=== PATIENT | male | born 1940 | race Caucasian/White ===

== ENCOUNTER → 2018-02-12 | Day surgery (SDC) | payer MEDICARE ==
[2018-02-04 15:11] LABS: BASOPHILS # (AUTO) 0.1 (0.0-0.1); BASOPHILS % 0.6 % (0.0-1.0); EOSINOPHILS # (AUTO) 0.2 (0.0-0.4); EOSINOPHILS % 1.9 % (0.0-6.0); HEMATOCRIT 33.6 % (38.2-49.6); HEMOGLOBIN 11.8 g/dL (14.0-18.0); LYMPHOCYTES # (AUTO) 2.5 (1.0-3.2); LYMPHOCYTES % 32.4 % (18.0-39.1); MEAN CORPUSCULAR HEMOGLOBIN 35.3 pg (28-32); MEAN CORPUSCULAR HGB CONC 35.1 g/dL (31-35); MEAN CORPUSCULAR VOLUME 100.6 fL (81-99); MONOCYTES # (AUTO) 1.2 (0.2-0.8); MONOCYTES % 15.6 % (4.4-11.3); NEUTROPHILS # (AUTO) 3.8 (2.1-6.9); NEUTROPHILS % 49.2 % (38.7-80.0); PLATELET COUNT 183 x10e3/uL (140-360); RED BLOOD COUNT 3.34 x10e6/uL (4.3-5.7); RED CELL DISTRIBUTION WIDTH 14.2 % (11.7-14.4)
[~2018-02-12] MED LIST: ASPIR 8181 MG PO; FENTANYL CITRATE/PF 100MCG/2 ML INJ ONE; LIDOCAINE HCL 2% LOCAL INJ 5 ML SDV VIAL INJ ONE; LISINOPRIL20 MG PO; PANTOPRAZOLE SO40 MG PO; PROPOFOL IV EMULSION 10 MG/ML 50 ML VIAL ONE
== END | disposition home or self-care (01) ==
LOC: OR 06:36
PROVIDERS: ATTEND Internal Medicine Gastroenterology
DX: K29.80 Duodenitis without bleeding (principal); K29.50 Unspecified chronic gastritis without bleeding; K44.9 Diaphragmatic hernia without obstruction or gangrene; I10 Essential (primary) hypertension; Z88.0 Allergy status to penicillin; Z01.812 Encounter for preprocedural laboratory examination; Z01.810 Encounter for preprocedural cardiovascular examination; Z79.82 Long term (current) use of aspirin; Z80.0 Family history of malignant neoplasm of digestive organs
CPT/HCPCS: 36415; 43239; 85025; 93005; J2001

== ENCOUNTER 2018-07-01 11:30 | Inpatient (IN) | payer MEDICARE ==
[~2018-07-01] VITALS: Ht 177.8 cm; Wt 90.9 kg
[~2018-07-01 11:30] MED LIST changes: -FENTANYL CITRATE/PF 100MCG/2 ML INJ ONE; -LIDOCAINE HCL 2% LOCAL INJ 5 ML SDV VIAL INJ ONE; -PROPOFOL IV EMULSION 10 MG/ML 50 ML VIAL ONE
[2018-07-01 12:31] LABS: BASOPHILS % 0.3 % (0.0-1.0); EOSINOPHILS % 0.1 % (0.0-6.0); HEMATOCRIT 37.7 % (38.2-49.6); HEMOGLOBIN 12.4 g/dL (14.0-18.0); LYMPHOCYTES # (AUTO) 1.4 (1.0-3.2); LYMPHOCYTES % 20.3 % (18.0-39.1); MEAN CORPUSCULAR HEMOGLOBIN 34.5 pg (28-32); MEAN CORPUSCULAR HGB CONC 32.9 g/dL (31-35); MONOCYTES # (AUTO) 0.6 (0.2-0.8); MONOCYTES % 8.9 % (4.4-11.3); PLATELET COUNT 259 x10e3/uL (140-360); RED BLOOD COUNT 3.59 x10e6/uL (4.3-5.7); RED CELL DISTRIBUTION WIDTH 15.6 % (11.7-14.4)
[2018-07-01 12:40] LABS: INR 1.02; PROTHROMBIN TIME 14.3 seconds (11.9-14.5)
[2018-07-01 12:41] LABS: PARTIAL THROMBOPLASTIN TIME 28.9 seconds (23.8-35.5)
[2018-07-01 12:53] LABS: ALANINE AMINOTRANSFERASE 173 IU/L (0-55); ALBUMIN 3.8 g/dL (3.5-5.0); ALBUMIN/GLOBULIN RATIO 0.9 (0.8-2.0); ALKALINE PHOSPHATASE 76 IU/L (40-150); AMYLASE 80 U/L (25-125); ANION GAP 15.3 mmol/L (8-16); BLOOD UREA NITROGEN 30 mg/dL (7-26); BUN/CREATININE RATIO 29 (6-25); CARBON DIOXIDE 22 mmol/L (22-29); CHLORIDE 103 mmol/L (98-107); CREATINE KINASE 96 IU/L (30-200); CREATININE, SERUM 1.05 mg/dL (0.72-1.25); EST GLOMERULAR FILTRATION RATE > 60 ML/MIN (60-); GLUCOSE 151 mg/dL (74-118); LIPASE 22 U/L (8-78); POTASSIUM 4.3 mmol/L (3.5-5.1); SODIUM 136 mmol/L (136-145)
--- NOTE | 2018-07-01 14:33 | Diagnostic Imaging Report ---
EXAM: XR CHEST 1 VIEW DATE: 07/01/2018 12:14 PM INDICATION: Pain/shortness of breath COMPARISON: None FINDINGS: Lines and Tubes: None Heart and Mediastinum: Heart prominent. Prominence of the pebbles poorly evaluated. Aortic vascular calcifications. Lungs and Pleura: Coarse opacities in the lung bases with blunting of the costophrenic sulci. Bones and Soft Tissues: Calcific density inferior to right scapula 21 mm. IMPRESSION: 1. Prominence of cardiac silhouette and pebbles, basilar opacities, and blunted costophrenic sulci statistically volume overload; however, no comparisons available. Correlation with history. 2. Superimposed chronic lung changes or infectious process possible. 2 view chest x-ray follow-up recommended for weeks. 3. Presumed calcified lymph node right axilla. Correlation with physical exam. Ultrasound could be obtained for further evaluation if indicated. Signed by: Dr. Benedict Mena MD on 07/01/2018 2:29 PM
[2018-07-01] MEDS ORDERED: ENOXAPARIN SODIUM INJ 100 MG/ML SYR SC ONE (16:15)
[2018-07-01] MEDS ORDERED: FUROSEMIDE INJ 10 MG/ML 4 ML VIAL IV ONE ×3 (17:30→22:00)
--- NOTE | 2018-07-01 17:38 | History and Physical ---
PAST MEDICAL HISTORY: The patient has multiple medical problems ongoing. He is being hospitalized through the emergency room per ER MD recommendation. The patient presented with shortness of breath. He had called the office earlier today and I was not told. He stated he did not feel right and was going to the hospital. Problems have included intermittent anemia. The hemoglobin was 13.3 on September 04 this year with normal folate and B12 levels. The hemoglobin was 10.8 on June 26 with normal white count and normal platelet count. MCH trace elevated at 34.2. MCV normal. MCHC normal. 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 The patient noted some arm discomfort when seen last June 25 at which time CPK and a comprehensive metabolic profile were ordered and there are no reports of those studies available. Primary hypertension on lisinopril 20 mg daily. Peripheral vascular disease. COPD. Smokes 2 to 5 cigarettes daily. September 2017 EGD revealed Sariah esophagitis and gastroduodenitis, which were treated. Diverticulosis, by history. Chronic right carotid bruit. April 19, 2018 Doppler scan of carotids, right side and left side with less than 50% stenosis. Possible vertebral artery stenosis "upstream ". The patient has chronic systolic murmur. History includes neuropathy symptoms. Followup B12 and folic acid levels were ordered on June 25 and those reports are not available. History includes Dupuytren's. Prior urinary tract infections. The patient had previously been referred to a urologist and he declined to go there. Chest x-ray was ordered on June 25 and the patient declined to do that. O2 sat 94% on June 25, 2018. Electrocardiogram at that time revealed nonspecific ST changes, inferior Q and LVH. The urinalysis is clear on June 26. ALLERGIES: Patient is allergic to PENICILLIN. He was given a flu shot at the [facility] on April 25, 2018. PAST SURGICAL HISTORY: Colonoscopy February 01, 2016. EGD on September 23, 2017. Repeat colonoscopy was recommended for 2018. The patient was referred to a lens cutter last year and he declined referral. See also current ER note. Dictation of current History and Physical to follow separately. Job#: [id number]
--- NOTE | 2018-07-01 17:52 | NUR ---
DR. Radha RESENDEZ IN WITH PT. AT THIS TIME.
[2018-07-01] MEDS ORDERED: TUBERCULIN, PPD INJ 5 TU/0.1 ML INJ ID ONE (18:00)
[2018-07-01] MEDS ORDERED: ASPIRIN 81 MG CHEW TAB PO ONE (18:00)
[2018-07-01] MEDS ORDERED: NITROGLYCERIN 2% OINT 1 GM PKT TOP ONE (18:00)
--- NOTE | 2018-07-01 19:01 | History and Physical ---
Dictation of past medical history again entered earlier separately. The patient was hospitalized through the emergency room. He notes 1 week of dyspnea on exertion. Occasional purulent sputum. He denies headache or difficulty with vision. No meningismus. Patient states he has continued to smoke until yesterday 1/2 pack daily. No chest pain. Denies nausea or diaphoresis. Dyspnea on exertion and not at rest. He notes vague discomfort in his upper extremities. Denies diarrhea or GI bleed. Denies current urological symptoms of dysuria or hematuria. Neuromuscular per patient otherwise negative. FAMILY HISTORY: Family history positive for coronary disease. ALLERGIES: See chart, nurses' notes. See also dictation of past medical history dictated earlier separately. ER lab reviewed. Glucose 151. AST 87, ALT 173. Troponin I is 0.61. B-natriuretic peptide 1330. Globulin 4.1 elevated. White count normal at 7.08. Hemoglobin 12.4. Indices MCV, MCH elevated. Pro time, PTT normal. Chest x-ray: See report. Prominence of cardiac silhouette and pebbles. Basilar opacities and blunted sulci, chronic lung changes or "infectious process possible." Presumed calcified lymph node right axilla. PHYSICAL EXAMINATION VITAL SIGNS: Temperature 96.3. Pulse 93 and regular. Respiratory rate 20, not labored. Blood pressure 135/86. O2 sat 94%. HEENT: No significant pallor or icterus. Throat clear. NECK: Supple. Carotids palpable. Faint bruits. HEART: Systolic ejection murmur 1-2/6, especially aortic area, generalized faint wheeze. ABDOMEN: Soft. Bowel sounds normal. EXTREMITIES: With bilateral 1+ edema. Peripheral pulses dampened. Homans' negative. Calves not tender. IMPRESSION: 1. Dyspnea on exertion. Recent EKG changes. Elevated troponins. Natriuretic peptide elevated. Fluid overload on chest x-ray. Appreciate cardiology and plans. See notes when available. Assess with an echo and angiography when able. 2. Hyperlipoproteinemia. 3. History of atherosclerosis with history of nonobstructive carotid disease in the past. 4. Systolic ejection murmur. LVH on recent EKG changed. The patient was referred to his polygraph examiner previously. 5. GI history of Sariah esophagitis and colon polyps. See recent endoscopy here per computer reviewed. 6. Hypertension. 7. History of gastroesophageal inflammation. 8. Elevated blood glucose to check A1c and follow up. 9. Chronic anemia. Previously the patient declined recommended hematology evaluation. Endoscopy essentially benign with some findings as mentioned above with recent reports per electronic medical record here. Vague lower abdominal discomfort now. PLAN: To check UA and image abdomen. His transaminases are elevated now. Check hepatitis viral studies. Follow up enzymes. PPD. Vitamin levels. Protein electrophoresis. Diurese as tolerated. Check troponin, follow up and check D-dimer. See initial and followup orders. Case discussed with ER physician. Job#: [id number]
--- NOTE | 2018-07-01 19:15 | NUR ---
PT. WAS SITTING IN THE HALLWAY COMING FROM THE AND HAD TO SIT TO CATCH HIS BREATH. Mark. CALLED
--- NOTE | 2018-07-01 19:22 | NUR ---
R.T. TO PLACE PT. ON BIPAP
--- NOTE | 2018-07-01 19:25 | NUR ---
R.T. IN ROOM AT THIS TIME TO PLACE PT. ON BIPAP
--- NOTE | 2018-07-01 19:37 | Diagnostic Imaging Report ---
EXAM: Renal Ultrasound INDICATION: ^Dysuria COMPARISON: None TECHNIQUE: Transverse and longitudinal images of the kidneys and bladder were obtained. FINDINGS: Right Kidney: Size: 10.1 cm Echogenicity: Normal Parenchymal thickness: Normal Collecting system: No hydronephrosis Stones: None Cyst/Mass: None Left Kidney: Size: 11.4 cm Echogenicity: Normal Parenchymal thickness: Normal Collecting system: No hydronephrosis Stones: None Cyst/Mass: None Bladder: Unremarkable. Prostate is within normal limits, measuring 3.1 x 1.9 x 2.6 cm. Incidentally seen trace left pleural effusion. IMPRESSION: Unremarkable renal ultrasound exam. Signed by: Dr. Fransisco Rodríguez MD on 07/01/2018 7:34 PM
--- NOTE | 2018-07-01 19:50 | Consultation ---
DATE OF CONSULTATION: July 01, 2018 CARDIOLOGY CONSULTATION REASON FOR CONSULTATION: Shortness of breath. HISTORY OF PRESENT ILLNESS: Mr. Toscano is a 77-year-old gentleman with past medical history of heavy smoking, COPD as well as hypertension, who presents to this institution with 3-week history of progressively worsening lower extremity edema, increased abdominal girth, dyspnea to the point at rest, and cannot complete 1 or 2 words without having to catch his breath. He has progressively worsened over this time period and has been having episodic discomfort radiating across his shoulders as well as tightness in the back of his neck region. He reports difficulty putting on his pants and reports that he has got no appetite with early satiety, which is relatively new onset for him. Patient reports upright of orthopnea, PND, but denies any subjective palpitations, syncope, or near syncope. In the emergency room, patient was noted to be in acute pulmonary edema with severe volume overload and overall elevated BNP at 1330 with vascular congestion and a troponin of 0.618 with a normal CK-MB at 3.9 and CK of 96. Patient denies having any known cardiac history in the past. Outside of his hypertension, he denies any known medical problems. PAST MEDICAL HISTORY: 1. Hypertension, essential. 2. COPD. PAST SURGICAL HISTORY: History of polypectomy 1 year ago during his colonoscopy. FAMILY HISTORY: Mother in her 90s, had a brain tumor resection. Father at the age of 64 with a heart attack. SOCIAL HISTORY: He is a former smoker. He says he quit just recently, but off and on 1 pack per day. Has off and on alcohol use. Denies any illicit drug use. ALLERGIES: PENICILLIN, WHICH CAUSED THE RASH AND ITCHINESS. CURRENT MEDICATIONS: Include lisinopril 20 mg daily. REVIEW OF SYSTEMS: GENERAL: Positive for fatigue, malaise, weight gain. Denies any fevers or chills. HEENT: Occasional headache. No visual complaints, sore throat, stuffy nose. Positive for neck pain as per HPI. CARDIOVASCULAR: As per HPI. GI: Positive for abdominal bloating, early satiety. Denies any bright red blood per rectum, melena, hematemesis. : Denies any pyuria. Reports decreased urinary frequency, hesitancy, urgency, and increased suprapubic girth. MUSCULOSKELETAL: Positive for leg swelling, aching and cramping in his legs, and some claudication-type symptoms. BACK: Positive for lower back pain. ID: No known infectious issues. ENDOCRINE: Denies any heat or cold intolerance. NEUROLOGIC: Denies any focal weakness, numbness, seizures, headaches, history of TIA. Positive for tingling in his feet bilaterally. Remainder of review of systems negative otherwise mentioned. PHYSICAL EXAMINATION: VITAL SIGNS: Height of 70 inches, weight of 182 pounds. BMI is 26.1. Temperature of 96.3, pulse of 93, respiratory rate of 20, blood pressure 135/86, O2 sat 94% on room air. GENERAL: This is a well-nourished, well-developed gentleman, who is currently in moderate respiratory distress. HEENT: Pupils are equal, round, and reactive to light. Extraocular movements are intact. Oropharynx is clear. NECK: Positive for bilateral carotid bruits. Elevation of jugular venous pulsations at angle of mandible. CARDIOVASCULAR: Regular rate and rhythm. Normal S1 and S2. 3/6 systolic murmur at the right upper sternal border. LUNGS: Showed absent breath sounds one-third of the lung pepe bilaterally with crackles one-half of the lung pepe and poor air flow. ABDOMEN: Firm, tense, distended. Positive fluid wave. Positive hepatomegaly. There is also suprapubic fullness. BACK: No costovertebral angle tenderness. EXTREMITIES: Warm with 3+ edema to the lower thigh region. There are absent pedal pulses, 1+ femoral pulses and 1+ radial pulses. NEUROLOGIC: Cranial nerves II-XII are intact. Strength is 5/5 and grossly nonfocal. PSYCH: Normal fluent speech. Appropriate affect. No anxiety or delusions. LABS: White count of 7.1, hemoglobin 12.4, hematocrit 37.7, platelets of 259,000. Sodium 136, potassium 4.3, chloride of 103, bicarb 22, BUN 30, creatinine 1.05, glucose of 151, calcium of 10.0. AST 87, ALT 173, alk phos 76, total protein of 7.9, albumin of 3.8, amylase 80, lipase 22. BNP 1330. Troponin is 0.618, within normal. CK of 96 and MB of 3.9. INR is 1.02. Chest x-ray reveals vascular congestion and volume overload signs. EKG reveals sinus rhythm, intraventricular conduction delay, and delayed R to S wave transition and T-wave inversions in the inferolateral leads, which could be ischemia. DIAGNOSES: 1. Acute decompensated systolic heart failure with radha gross volume overload. 2. Elevated troponin, likely demand myocardial infarct secondary to congestive heart failure exacerbation. 3. Bilateral carotid bruits. 4. High pretest probability of coronary artery disease. 5. Smoker. 6. Hypertension. 7. Chronic obstructive pulmonary disease. 8. Positive family history of coronary artery disease with father dying of heart attack at the age of 64. 9. Abnormal electrocardiogram. 10. Benign prostatic hypertrophy symptoms. 11. Bilateral lower extremity edema. PLAN/RECOMMENDATIONS: 1. From a cardiovascular standpoint, we have started him on IV diuretic therapy and will need aggressive diuresis and volume optimization. 2. Will go ahead and check his echocardiogram STAT for evaluation of left ventricular function. 3. Has received 1 dose of subcutaneous Lovenox for systemic anticoagulant therapy. 4. Check abdominal ultrasound to see if any signs of urinary retention, which may be complicating his clinical picture. 5. Will check carotid duplex. 6. Will titrate GIAN, beta-carlitos, etc. 7. Telemetry monitoring. 8. Will continue to follow this patient with you, but for right now goal will be improving his overall volume status prior to consideration of ischemic evaluation unless if radha angina starts to ensue. Job#: [id number]
--- NOTE | 2018-07-01 19:53 | NUR ---
VASC. TECH IN ROOM AT THIS TIME
--- NOTE | 2018-07-01 21:07 | NUR ---
VASC. EXam COMPLETE; reported to elle guerrero
[2018-07-01] MEDS: ALBUTEROL/IPRATROPIUM 3 ML NEB NEB SCH (21:30)
[2018-07-01 22:13] LABS: CHOL/HDL RATIO 3.7 (3.9-4.7)
[2018-07-01 22:19] LABS: CREATINE KINASE MB 10.7 ng/mL (0-5.0)
--- NOTE | 2018-07-01 22:32 | NUR ---
urine collected and sent off to the lab.
--- NOTE | 2018-07-01 22:36 | NUR ---
johnny from the lab called to report troponin -1.280/ck-mb-10.7
--- NOTE | 2018-07-01 22:44 | NUR ---
called dr. carlos alberto argueta at this time to inform him of the +troponin of 1.280/ ck-mb--10.7; no new orders rec'd
[2018-07-01] MEDS ORDERED: ONDANSETRON HCL INJ 2 MG/ML VIAL IV PRN (23:00)
[2018-07-01] MEDS ORDERED: SODIUM CHLORIDE FLUSH 10 ML SYR INJ PRN (23:00)
[2018-07-01 23:23] LABS: FOLATE 18.6 ng/mL (7.0-15.4)
[2018-07-01 23:36] LABS: BILIRUBIN,URINE NEGATIVE (NEGATIVE); CLARITY,URINE CLEAR (CLEAR); COLOR,URINE YELLOW (YELLOW); KETONES,URINE NEGATIVE (NEGATIVE); LEUKOCYTE ESTERASE ,URINE NEGATIVE (NEGATIVE); NITRITE,URINE NEGATIVE (NEGATIVE); PROTEIN,URINE DIPSTICK NEGATIVE (NEGATIVE); URINE UROBILINOGEN 0.2 mg/dL (0.2 - 1)
--- NOTE | 2018-07-01 23:41 | NUR ---
clarification obtained from dr. hurtado re ct abdomen. 2 tiger tops obtained.
[2018-07-01 23:46] LABS: RBC,URINE 0-5 /HPF (0-5); WBC,URINE (MAN) 0-5 /HPF (0-5)
[2018-07-01 23:47] LABS: BACTERIA,URINE RARE /HPF; EPITHELIAL CELLS,URINE RARE /LPF
--- NOTE | 2018-07-01 23:50 | NUR ---
REPEAT EKG AND REPORTED OFF TO [facility] FOR CONTINUITY OF CARE
[2018-07-02] VITALS (10 sets, daily range): BP systolic 98–136; BP diastolic 45–106
--- NOTE | 2018-07-02 00:08 | NUR ---
off unit to radiology w/ bipap. r.t. wAS called to take bipap over to radiolgy
--- NOTE | 2018-07-02 00:57 | Diagnostic Imaging Report ---
EXAM: CT of the abdomen and pelvis with IV contrast, CT chest without IV contrast INDICATION: Shortness of breath for 2 weeks, anemia COMPARISON: None TECHNIQUE: The chest, abdomen and pelvis were scanned using a multidetector helical scanner. Coronal and sagittal reformations were obtained. Dose modulation, iterative reconstruction, and/or weight based adjustment of the mA/kV was utilized to reduce the radiation dose to as low as reasonably achievable. Routine protocol performed of the abdomen and pelvis with IV contrast, followed by CT of the chest. IV Contrast: 100 cc Isovue-370 Oral Contrast: None CTDIvol has been reviewed. It is below the limits set by the Radiation Protocol Committee (RPC). FINDINGS: LUNGS AND AIRWAYS: Thin septations/debris in the trachea and right mainstem bronchus. Bilateral bronchial thickening. Emphysematous changes. Septal thickening. Spiculated nodule with pleural attachment in the right upper lung measuring 1.3 cm. Additional nonspecific subcentimeter nodules, examples as follows on series 3: * Right lower lobe, 4 mm, image 76 * Left upper lung, 4 mm, image 67 Bibasilar atelectasis PLEURA: Moderate layering bilateral pleural effusions. HEART, MEDIASTINUM, VESSELS: The heart is within normal size limits. Diffuse coronary artery calcifications. Calcifications of the aortic annulus and mitral valves. No abnormal pericardial effusion. Atherosclerotic changes of the thoracic aorta without aneurysm. Nonspecific mediastinal and right hilar lymph nodes measuring up to 1 cm. A subcarinal lymph node measures 1.5 cm in short diameter on coronal view. LIVER: No masses BILIARY: Cholelithiasis and gallbladder wall thickening. No ductal dilation. SPLEEN: No masses PANCREAS: No masses ADRENALS: Right adrenal gland nodule measuring 1.3 cm. Left adrenal gland nodule measuring 2 cm. KIDNEYS: Symmetric perfusion. No enhancing masses. No hydronephrosis. GI TRACT: No distention, wall thickening or evidence of obstruction. Normal appendix. VESSELS: Severe atherosclerotic changes of the abdominal aorta PERITONEUM/RETROPERITONEUM: No free air or fluid LYMPH NODES: No lymphadenopathy REPRODUCTIVE ORGANS: The prostate is enlarged to 5 cm in transverse diameter. BLADDER: Unremarkable SOFT TISSUES: Small fat-containing left inguinal hernia. BONES: No suspicious bone lesions. IMPRESSION: 1. Spiculated right upper lung 1.3 cm nodule is highly suspicious for primary lung cancer. Considerations per Fleischner Society recommendations include follow-up CT in 3 months, PET/CT or biopsy. 2. Emphysema and mild fluid overload. Moderate layering bilateral pleural effusions. 3. Cholelithiasis and nonspecific gallbladder wall thickening. There is no gallbladder distention. 4. Indeterminate right adrenal gland nodule measuring 1.3 cm and left adrenal gland nodule measuring 2 cm. Signed by: Dr. Clarita Brooke M.D. on 07/02/2018 12:54 AM
[2018-07-02] MEDS: ALBUTEROL/IPRATROPIUM 3 ML NEB NEB SCH ×4 (01:05→20:10)
[2018-07-02] MEDS ORDERED: SODIUM CHLORIDE 0.9% 50ML 50 ML ONE (02:27)
[2018-07-02] MEDS ORDERED: IOPAMIDOL 370 MG/ML 200 ML INFUS..BTL INJ ONE (02:27)
--- OUTSIDE RECORDS SUMMARY | 2018-07-02 02:39 | XMS REPORT ---
Author Author [facility] Address Unknown Phone Unavailable Care Team Providers Care Supervisor [employer] Name Role Phone Georgia GUERRERO Unavailable Unavailable Problems This patient has no known problems. Allergies, Adverse Reactions, Alerts This patient has no known allergies or adverse reactions. Medications This patient has no known medications. Results Test Description Test Time Test Comments Text Results Atomic Results Result Comments CT CHEST WO 2018-07-02 00:34:00 [place] [address] Patient Name: PHILIP CHU MR #: [id number] : 1940 Age/Sex: 77/M Req #: [id number] Adm Physician: Ordered by: SARAHI VANG MD Report #: [id number] Location: ER Room/Bed: Procedure: [id number] CT/CT CHEST WO Exam Date: Exam Time: REPORT STATUS: Signed EXAM: CT of the abdomen and pelvis with IV contrast, CT chest without IV con trast INDICATION: Shortness of breath for 2 weeks, anemia COMPARISON: None TECHNIQUE: The chest, abdomen and pelvis were scanned using a multidetector helical scanner. Coronal and sagittal reformations were obtained. Dose modulation, iterative reconstruction, and/or weight based adjustment of the mA/kV was utilized to reduce the radiation dose to as low as reasonably achievable. Routine protocol performed of the abdomen and pelvis with IV contrast, followed by CT of the chest. IV Contrast: 100 cc Isovue-370 Oral Contrast: None CTDIvol has been reviewed. It is below the limits set by the Radiation Protocol Committee (RPC). FINDINGS: LUNGS AND AIRWAYS: Thin septations/debris in the trachea and right mainstem bronchus. Bilateral bronchial thickening. Emphysematous changes. Septal thickening. Spiculated nodule with pleural attachment in the right upper lung measuring 1.3 cm. Additional nonspecific subcentimeter nodules, examples as follows on series 3: * Right lower lobe, 4 mm, image 76 * Left upper lung, 4 mm, image 67 Bibasilar atelectasis PLEURA: Moderate layering bilateral pleural effusions. HEART, MEDIASTINUM, VESSELS: The heart is within normal size limits. Diffuse coronary artery calcifications. Calcifications of the aortic annulus and mitral valves. No abnormal pericardial effusion. Atherosclerotic changes of the thoracic aorta without aneurysm. Nonspecific mediastinal and right hilar lymph nodes measuring up to 1 cm. A subcarinal lymph node measures 1.5 cm in short diameter on coronal view. LIVER: No masses BILIARY: Cholelithiasis and gallbladder wall thickening. No ductal dilation. SPLEEN: No masses PANCREAS: No masses ADRENALS: Right adrenal gland nodule measuring 1.3 cm. Left adrenal gland nodule measuring 2 cm. KIDNEYS: Symmetric perfusion. No enhancing masses. No hydronephrosis. GI TRACT: No distention, wall thickening or evidence of obstruction. Normal appendix. VESSELS: Severe atherosclerotic changes of the abdominal aorta PERITONEUM/RETROPERITONEUM: No free air or fluid LYMPH NODES: No lymphadenopathy REPRODUCTIVE ORGANS: The prostate is enlarged to 5 cm in transverse diameter. BLADDER: Unremarkable SOFT TISSUES: Small fat-containing left inguinal hernia. BONES: No suspicious bone lesions. IMPRESSION: 1. Spiculated right upper lung 1.3 cm nodule is highly suspicious for primary lung cancer. Considerations per Fleischner Society recommendations include follow-up CT in 3 months, PET/CT or biopsy. 2. Emphysema and mild fluid overload. Moderate layering bilateral pleural effusions. 3. Cholelithiasis and nonspecific gallbladder wall thickening. There is no gallbladder distention. 4. Indeterminate right adrenal gland nodule measuring 1.3 cm and left adrenal gland nodule measuring 2 cm. Signed by: Dr. Xiomara Brooke M.D. on 07/02/2018 12:54 AM Dictated By: XIOMARA BROOKE MD Transcribed By: PAM on 07/02/1853 COPY TO: SARAHI VANG MD CT ABDOMEN/PELVIS W 2018-07-02 00:34:00 [place] [id number] [place] [address] Patient Name: PHILIP CHU MR #: [id number] : 1940 Age/Sex: 77/M Req #: [id number] Adm Physician: Ordered by: KARLI MIRZA MD Report #: [id number] Location: ER Room/Bed: Procedure: [id number] CT/CT ABDOMEN/PELVIS W Exam Date: Exam Time: REPORT STATUS: Signed EXAM: CT of the abdomen and pelvis with IV contrast, CT chest without IV contrast INDICATION: Shortness of breath for 2 weeks, anemia COMPARISON: None TECHNIQUE: The chest, abdomen and pelvis were scanned using a multidetector helical scanner. Coronal and sagittal reformations were obtained. Dose modulation, iterative reconstruction, and/or weight based adjustment of the mA/kV was utilized to reduce the radiation dose to as low as reasonably achievable. Routine protocol performed of the abdomen and pelvis with IV contrast, followed by CT of the chest. IV Contrast: 100 cc Isovue- 370 Oral Contrast: None CTDIvol has been reviewed. It is below the limits set by the Radiation Protocol Committee (RPC). FINDINGS: LUNGS AND AIRWAYS: Thin septations/debris in the trachea and right mainstem bronchus. Bilateral bronchial thickening. Emphysematous changes. Septal thickening. Spiculated nodule with pleural attachment in the right upper lung measuring 1.3 cm. Additional nonspecific subcentimeter nodules, examples as follows on series 3: * Right lower lobe, 4 mm, image 76 * Left upper lung, 4 mm, image 67 Bibasilar atelectasis PLEURA: Moderate layering bilateral pleural effusions. HEART, MEDIASTINUM, VESSELS: The heart is within normal size limits. Diffuse coronary artery calcifications. Calcifications of the aortic annulus and mitral valves. No abnormal pericardial effusion. Atherosclerotic changes of the thoracic aorta without aneurysm. Nonspecific mediastinal and right hilar lymph nodes measuring up to 1 cm. A subcarinal lymph node measures 1.5 cm in short diameter on coronal view. LIVER: No masses BILIARY: Cholelithiasis and gallbladder wall thickening. No ductal dilation. SPLEEN: No masses PANCREAS: No masses ADRENALS: Right adrenal gland nodule measuring 1.3 cm. Left adrenal gland nodule measuring 2 cm. KIDNEYS: Symmetric perfusion. No enhancing masses. No hydronephrosis. GI TRACT: No distention, wall thickening or evidence of obstruction. Normal appendix. VESSELS: Severe atherosclerotic changes of the abdominal aorta PERITONEUM/RETROPERITONEUM: No free air or fluid LYMPH NODES: No lymphadenopathy REPRODUCTIVE ORGANS: The prostate is enlarged to 5 cm in transverse diameter. BLADDER: Unremarkable SOFT TISSUES: Small fat-containing left inguinal hernia. BONES: No suspicious bone lesions. IMPRESSION: 1. Spiculated right upper lung 1.3 cm nodule is highly suspicious for primary lung cancer. Considerations per Fleischner Society recommendations include follow-up CT in 3 months, PET/CT or biopsy. 2. Emphysema and mild fluid overload. Moderate layering bilateral pleural effusions. 3. Cholelithiasis and nonspecific gallbladder wall thickening. There is no gallbladder distention. 4. Indeterminate right adrenal gland nodule measuring 1.3 cm and left adrenal gland nodule measuring 2 cm. Signed by: Dr. Xiomara Brooke M.D. on 07/02/2018 12:54 AM Dictated By: XIOMARA BROOKE MD Transcribed By: PAM on 07/02/1853 COPY TO: KARLI MIRZA MD RENAL RETROPERITONEAL COMP 2018-07-01 19:32:00 [place] [address] Patient Name: PHILIP CHU MR #: [id number] : 1940 Age/Sex: 77/M Req #: [id number] Adm Physician: Ordered by: ROD RESENDEZ MD Report #: [id number] Location: ER Room/Bed: Procedure: [id number] US/US RENAL RETROPERITONEAL COMP Exam Date: 07/01/18 Exam Time: 1840 REPORT STATUS: Signed EXAM: Renal Ultrasound INDICATION: Dysuria COMPARISON: None TECHNIQUE: Transverse and longitudinal images of the kidneys and bladder were obtained. FINDINGS: Right Kidney: Size: 10.1 cm Echogenicity: Normal Parenchymal thickness: Normal Collecting system: No hydronephrosis Stones: None Cyst/Mass: None Left Kidney: Size: 11.4 cm Echogenicity: Normal Parenchymal thickness: Normal Collecting system: No hydronephrosis Stones: None Cyst/Mass: None Bladder: Unremarkable. Prostate is within normal limits, measuring 3.1 x 1.9 x 2.6 cm. Incidentally seen trace left pleural effusion. IMPRESSION: Unremarkable renal ultrasound exam. Signed by: Dr. Fransisco Carlton MD on 07/01/2018 7:34 PM Dictated By: FRANSISCO CARLTON MD 33 Transcribed By: PAM on 07/01/181933 COPY TO: ROD RESENDEZ MD CHEST SINGLE (NOT PORTABLE) 2018-07-01 14:27:00 [place] [address] Patient Name: PHILIP CHU MR #: [id number] : 1940 Age/Sex: 77/M Req #: [id number] Adm Physician: Ordered by: MARY LOU VILLA FIBER PICKER Report #: [id number] Location: ER Room/Bed: Procedure: [id number] DX/CHEST SINGLE (NOT PORTABLE) Exam Date: 07/01/18 Exam Time: 1355 REPORT STATUS: Signed EXAM: XR CHEST 1 VIEW DATE: 07/01/2018 12:14 PM INDICATION: Pain/shortness of breath COMPARISON: None FINDINGS: Lines and Tubes: None Heart and Mediastinum: Heart prominent. Prominence of the pebbles poorly evaluated. Aortic vascular calcifications. Lungs and Pleura: Coarse opacities in the lung bases with blunting of the costophrenic sulci. Bones and Soft Tissues: Calcific density inferior to right scapula 21 mm. IMPRESSION: 1. Prominence of cardiac silhouette and pebbles, basilar opacities, and blunted costophrenic sulci statistically volume overload; however, no comparisons available. Correlation with history. 2. Superimposed chronic lung changes or infectious process possible. 2 view chest x-ray follow-up recommended for weeks. 3. Presumed calcified lymph node right axilla. Correlation with physical exam. Ultrasound could be obtained for further evaluation if indicated. Signed by: Dr. Schuyler Mena MD on 07/01/2018 2:29 PM Dictated By: SCHUYLER MENA MD 142 Transcribed By: PAM on 07/01/18 142 COPY TO: MARY LOU VILLA NP
[2018-07-02 05:40] LABS: BASOPHILS % 0.2 % (0.0-1.0); EOSINOPHILS % 0.2 % (0.0-6.0); HEMATOCRIT 33.3 % (38.2-49.6); LYMPHOCYTES # (AUTO) 0.6 (1.0-3.2); LYMPHOCYTES % 14.3 % (18.0-39.1); MEAN CORPUSCULAR VOLUME 102.8 fL (81-99); MONOCYTES # (AUTO) 0.8 (0.2-0.8); MONOCYTES % 17.8 % (4.4-11.3); NEUTROPHILS # (AUTO) 2.9 (2.1-6.9); PLATELET COUNT 233 x10e3/uL (140-360); RED BLOOD COUNT 3.24 x10e6/uL (4.3-5.7); RED CELL DISTRIBUTION WIDTH 15.8 % (11.7-14.4)
[2018-07-02 06:07] LABS: ALBUMIN 3.4 g/dL (3.5-5.0); ALBUMIN/GLOBULIN RATIO 0.9 (0.8-2.0); ANION GAP 16.1 mmol/L (8-16); CALCIUM 9.6 mg/dL (8.4-10.2); CHOL/HDL RATIO 3.9 (3.9-4.7); CREATININE, SERUM 1.17 mg/dL (0.72-1.25); POTASSIUM 4.1 mmol/L (3.5-5.1)
[2018-07-02 06:14] LABS: CREATINE KINASE MB 7.7 ng/mL (0-5.0)
--- NOTE | 2018-07-02 06:20 | NUR ---
dr carlos alberto argueta called and notified of elevated troponin and d-dimer. informed of ct chest findings.
--- NOTE | 2018-07-02 06:25 | NUR ---
dr hurtado called and informed of elevated troponin and d-dimer. also informed of ct chest findings.
[2018-07-02] MEDS: FUROSEMIDE INJ 10 MG/ML 4 ML VIAL IV SCH ×3 (06:46→22:10)
--- NOTE | 2018-07-02 06:58 | NUR ---
report to tye cannon rn at this time.
--- NOTE | 2018-07-02 07:28 | Diagnostic Imaging Report ---
Examination: Single AP view of the chest. COMPARISON: CT chest without contrast earlier 07/02/2018 INDICATION: Shortness of breath DISCUSSION: The lungs are well-inflated. Small bilateral pleural effusions with bilateral lower lobe airspace disease, likely atelectasis, seen to better advantage on comparison CT. Mild prominence of the perihilar pulmonary interstitium. Right upper lobe nodule described on the comparison CT is poorly visualized by plain radiography possibly due to superimposition of structures external to the patient projecting over the right lung apex. Regional skeletal structures are intact. IMPRESSION: Pulmonary venous congestion with small bilateral pleural effusions and passive atelectasis of the posterior basal segments of the lower lobes. Refer to CT scan of the chest without contrast earlier 07/02/2018 for further details. Signed by: Dr. Cliff Crowley M.D. on 07/02/2018 7:25 AM
--- NOTE | 2018-07-02 08:17 | NUR ---
patient received awake and alert. removed from bipap and placed on 02 2l via nc. patient tolerating well. vitals stable with no distress.
[2018-07-02] MEDS: ASPIRIN 81 MG CHEW TAB PO SCH (08:50)
[2018-07-02] MEDS: PANTOPRAZOLE SOD 40 MG TABEC PO SCH (08:50)
[2018-07-02] MEDS: LISINOPRIL 20 MG TAB PO SCH (08:51)
--- NOTE | 2018-07-02 10:37 | Consultation ---
DATE OF CONSULTATION: July 02, 2018 PULMONARY CONSULTATION REASON FOR CONSULTATION: Shortness of breath. HPI: Mr. Toscano is a 77-year-old male who presented to the emergency room with the complaints of shortness of breath on exertion. Patient has a history of smoking. He has been a smoker for 50+ years. He denies any complaints of chest pain, nausea or vomiting. He reports that the shortness of breath has been going on for a few months, but progressively getting worse. In the emergency room, patient was seen by cardiology. I spoke to Dr. Sosa, and he told me that patient's ejection fraction is 20%. His troponin was 1.369 and 1.819 in the emergency room with a BNP of 1330. Patient has been started on diuretics and reports that he is feeling somewhat better. I have reviewed the CT scan of the chest and the images, and is showing evidence of spiculated right upper lung 1.3-cm nodule, and also showing bilateral small effusion with fluid overload. Also, has emphysema on CT scan. REVIEW OF SYSTEMS GENERAL: Denies any fever or chills. HEENT: Head: Denies any head trauma. ENT: Denies any earache. CV: Denies any chest pain. RESPIRATORY: Shortness of breath. GI: Denies any nausea or vomiting. MUSCULOSKELETAL: Denies any arthralgias or myalgias. NEURO: Denies any focal weakness. The rest of the review of systems are negative, except as in HPI. PAST MEDICAL HISTORY: History of hypertension, peripheral arterial disease according to the chart in September 2017. The patient had Sariah esophagitis, history of diverticulosis. PAST SURGICAL HISTORY: Polypectomy and colonoscopy. FAMILY/SOCIAL HISTORY: Mother in her 90s. He is living by himself. His family is in [place]. He has been a smoker for 60 years of pack to 1-1/2 packs a day. Denies any alcohol use. PHYSICAL EXAMINATION VITAL SIGNS: Temperature 98.7, pulse of 87, blood pressure 136/68, respiratory rate of 18, O2 sat 93% on 2 L. HEENT: Head is atraumatic and normocephalic. NECK: Supple. CHEST: Decreased air entry on the bases. Occasional wheezing. HEART: S1 and S2 audible. ABDOMEN: Soft, nontender and nondistended. Possible small amount of ascites. EXTREMITIES: Bilateral 3+ peal edema. NEUROLOGIC: Awake, alert and oriented. Following commands. LABS: White count of 7000, hemoglobin 12.4, and platelets 259,000. Chemistry: Sodium 139, potassium 4.1, BUN 34, creatinine 1.17, creatinine was 1.05 yesterday. Troponin has been 1.369 and 1.819 and is going up. CK-MB is 9. Vitamin B12 and folate are high. BNP is 1300. CT of the chest, I have reviewed the images. Patient has a spiculated nodule, which is 1.3 cm in the right upper lobe, and she has small bilateral effusion, congestion and emphysema. ASSESSMENT AND PLAN: Mr. Toscano is a 77-year-old male with his shortness of breath, ejection fraction 20% per Dr. Sosa's report. I have discussed the case with him. The right-sided mass is highly suspicious for malignancy given the 60-pack year smoking history. He also has emphysema as well. I have discussed with Dr. Sosa first cardiac stabilization will be done. Once he is stabilized from a cardiac standpoint and his shortness of breath has improved, then will consider doing a biopsy of the right upper lobe mass. ASSESSMENT 1. Right upper lobe mass suspicious for malignancy. 2. Smoker. 3. Fhikw-ec-aqxwxto decompensated heart failure. 4. History of hypertension. 5. High likelihood of having chronic obstructive pulmonary disease. 6. Family history of heart disease. PLAN 1. Diuresis per cardiology recommendation. Possible cardiac cath unless the patient possibly has [id number]-isecwgnem NE versus troponin leak due to heart failure. 2. Nebulizer treatment will be continued. Hold off on the IV Solu-Medrol. 3. Lung mass biopsy will be done once the patient is stable from cardiac standpoint, and once euvolemic and able to lay flat. This was discussed in detail with the patient as well. I will also check influenza antigen. Patient has not received flu vaccine. Thank you for this consult. Job#: [id number] ANGELITA
--- NOTE | 2018-07-02 13:27 | NUR ---
Pt sleeping soundly and no family present. THEE DEAL Molecular Biology Scientist Spiritual Care Department O: [phone] Pager: [phone] ([phone] number calling from)
[2018-07-02] MEDS: NITROGLYCERIN 0.1MG/HR PATCH TOP SCH (13:42)
--- NOTE | 2018-07-02 14:00 | NUR ---
Dr Sosa, Dr Kidd, and Dr Etienne have all met with patient to discuss future evaluation of lung mass and elevated troponin. patient placed on hospital bed due to ER hold times.
--- NOTE | 2018-07-02 14:20 | NUR ---
received report from off going nurse. patient in room in bed. pending room assignment. no s/s of acute distress. resp even and nonlabored. bed down call lightin reach, will continue to monitor.
--- NOTE | 2018-07-02 14:25 | NUR ---
speech therapy in room, reported she did not see a need for a MBS test and stated she wanted to have it canceled. reports that patient is not exibiting any difficulty with speech or with swallowing.
[2018-07-02] MEDS ORDERED: SINCALIDE 3 MCG/VIAL INJ ONE (15:28)
[2018-07-02 15:46] LABS: CREATINE KINASE MB 6.2 ng/mL (0-5.0)
[2018-07-02] MEDS: CARVEDILOL 3.125 MG TAB PO SCH (16:33)
[2018-07-02] MEDS: MORPHINE SULFATE 2 MG/ML SYR IV PRN (19:05)
--- NOTE | 2018-07-02 19:55 | NUR ---
back from radiology dept, pt awake alert skin w/d resp nonlab. nad noted. vss. denies any complaints at this time
--- NOTE | 2018-07-02 20:08 | Diagnostic Imaging Report ---
EXAM: HIDA Scan with Morphine Challenge INDICATION: 77 M with cholelithiasis and abdominal pain Report: Following the administration of 6 mCi of Tc-99m mebrofenin, dynamic images of the abdomen in the anterior projection were obtained through 60 minutes. Morphine sulfate 2 mg was administered intravenously and additional images were obtained through 30 minutes. Perfusion of the liver is normal. Extraction of tracer from the blood pool by the liver parenchyma is normal. Tracer appears promptly with in the biliary tract. Tracer is seen in the small bowel by 18 minutes post injection of the tracer. The gallbladder does not fill during the initial 60 minutes of imaging but does fill promptly following administration of morphine. Impression: Filling of the gallbladder excludes acute cystic duct obstruction/acute cholecystitis. Signed by: Dr. Noreen Stone M.D. on 07/02/2018 8:05 PM
[2018-07-02] MEDS ORDERED: SIMVASTATIN40 MG PO (20:55)
[2018-07-02] MEDS ORDERED: ZOLPIDEM TARTRATE 5 MG TAB PO PRN (21:00)
--- NOTE | 2018-07-02 21:28 | NUR ---
ATTEMPTED TO CALL REPORT WITHOUT SUCCESS
[2018-07-03] VITALS (45 sets, daily range): BP systolic 82–117; BP diastolic 36–70
[2018-07-03] MEDS: ALBUTEROL/IPRATROPIUM 3 ML NEB NEB SCH ×4 (01:50→19:00)
[2018-07-03 05:01] LABS: BASOPHILS % 0.2 % (0.0-1.0); EOSINOPHILS % 0.7 % (0.0-6.0); HEMATOCRIT 32.6 % (38.2-49.6); LYMPHOCYTES # (AUTO) 2.4 (1.0-3.2); LYMPHOCYTES % 40.5 % (18.0-39.1); MEAN CORPUSCULAR HEMOGLOBIN 34.6 pg (28-32); MEAN CORPUSCULAR HGB CONC 33.7 g/dL (31-35); MEAN CORPUSCULAR VOLUME 102.5 fL (81-99); MONOCYTES # (AUTO) 1.2 (0.2-0.8); MONOCYTES % 19.8 % (4.4-11.3); NEUTROPHILS # (AUTO) 2.3 (2.1-6.9); NEUTROPHILS % 38.3 % (38.7-80.0); PLATELET COUNT 204 x10e3/uL (140-360); RED BLOOD COUNT 3.18 x10e6/uL (4.3-5.7); RED CELL DISTRIBUTION WIDTH 15.7 % (11.7-14.4)
[2018-07-03 05:37] LABS: ALBUMIN 3.2 g/dL (3.5-5.0); ALBUMIN/GLOBULIN RATIO 0.9 (0.8-2.0); ANION GAP 13.4 mmol/L (8-16); CALCIUM 9.4 mg/dL (8.4-10.2); CREATININE, SERUM 1.32 mg/dL (0.72-1.25); POTASSIUM 3.4 mmol/L (3.5-5.1)
[2018-07-03] MEDS: FUROSEMIDE INJ 10 MG/ML 4 ML VIAL IV SCH ×2 (06:00→20:55)
[2018-07-03] MEDS: NITROGLYCERIN 0.1MG/HR PATCH TOP SCH (09:00)
[2018-07-03] MEDS: PANTOPRAZOLE SOD 40 MG TABEC PO SCH (09:00)
[2018-07-03] MEDS: CARVEDILOL 3.125 MG TAB PO SCH ×2 (09:00→18:24)
[2018-07-03] MEDS: LISINOPRIL 20 MG TAB PO SCH (09:00)
[2018-07-03] MEDS: ASPIRIN 81 MG CHEW TAB PO SCH (09:00)
--- NOTE | 2018-07-03 12:19 | NUR ---
Supervisor [employer] to bedside to discuss plan of care with patient/family. CM/SW role and care transitions discussed. Anticipated discharge plan discussed along with duration of care. CM/SW discussed patients right to make decisions in care. CM/SW work hours given. Patient lives: PATIENT LIVES ALONE IN [facility] HOME. Admit/Transfer: ER POA/Emergency contact: DAUGHTER JUANITA HILL [phone] Current/Previous Home Health: NA PCP/Follow-up Care: NA Current/Previous DME: NONE; PATIENT INDEPENDENT PRIOR TO HOSPITALIZATION Other Services: NA Employment Status: NA Areas of Concerns: PATIENT FEELS HE MAY NEED OXYGEN; PATIENT INFORMED OF QUALIFYING REQUIREMENTS AND OUT OF POCKET EXPENSES IF INSURANCE DOES NOT PAY. Referral Needs: NA Education Needs: NA IMM/DALE given and signed (if applicable): NONE Goal for discharge:PATIENT GOAL IS TO RETURN HOME WITH NO NEEDS AND INDEPENDENT. CM left business card at the bedside with contact information. Name and number was also written on the patients whiteboard. Patient verbalized understanding of discussion. CM will follow-up with ongoing discharge and transition of care needs.
--- NOTE | 2018-07-03 14:03 | Diagnostic Imaging Report ---
PROCEDURE: ULTRASOUND GUIDED THORACENTESIS COMPARISON: None. INDICATIONS: Pleural effusion FINDINGS: After informed consent was obtained, the patient was placed in the sitting position and preliminary ultrasound of the posterior chest identified a safe route into the left pleural effusion. The overlying skin was prepped and draped in usual sterile fashion. Lidocaine 1% was used for local anesthesia. Under ultrasound guidance, a 5 [place] needle was advanced into the pleural fluid and 700 cc were aspirated. The patient tolerated the procedure well and there were no immediate post-procedural complications. A post-thoracentesis chest radiograph will be obtained. CONCLUSION: Uncomplicated ultrasound-guided left thoracentesis with removal of 700 cc. Grant Montoya D.O. Dictated by: Grant Montoya D.O. on 07/03/2018 at 14:12 Electronically approved by: Grant Montoya D.O. on 07/03/2018 at 14:12
[2018-07-03 15:42] LABS: BODY FLUID TYPE PLEURAL
[2018-07-03 15:43] LABS: BODY FLUID COLOR STRAW
[2018-07-03 15:44] LABS: BODY FLUID APPEARANCE CLOUDY; RBC,BODY FLUID 367 cells/uL; WBC,BODY FLUID 51 cells/uL
[2018-07-03 15:50] LABS: LYMPHOCYTES,BODY FLUID 83 %; MONO/MACROPHG,BODY FLUID 8 %; NEUTROPHILS,BODY FLUID 1 %; OTHER CELLS,BODY FLUID 8 %
[2018-07-03 16:10] LABS: ANION GAP 16.1 mmol/L (8-16); CALCIUM 9.5 mg/dL (8.4-10.2); CREATININE, SERUM 1.21 mg/dL (0.72-1.25); POTASSIUM 3.1 mmol/L (3.5-5.1)
[2018-07-03] MEDS: POTASSIUM CHLORIDE 20 MEQ TAB CR PO SCH (18:24)
[2018-07-04] VITALS (36 sets, daily range): BP systolic 87–143; BP diastolic 42–68
[2018-07-04] MEDS: POTASSIUM CHLORIDE 20 MEQ TAB CR PO SCH ×2 (00:21→06:18)
[2018-07-04] MEDS: ALBUTEROL/IPRATROPIUM 3 ML NEB NEB SCH ×4 (01:25→19:01)
[2018-07-04 04:51] LABS: BASOPHILS % 0.4 % (0.0-1.0); EOSINOPHILS # (AUTO) 0.1 (0.0-0.4); EOSINOPHILS % 1.5 % (0.0-6.0); HEMOGLOBIN 10.8 g/dL (14.0-18.0); LYMPHOCYTES # (AUTO) 2.7 (1.0-3.2); LYMPHOCYTES % 48.4 % (18.0-39.1); MEAN CORPUSCULAR HEMOGLOBIN 34.1 pg (28-32); MEAN CORPUSCULAR HGB CONC 33.8 g/dL (31-35); MEAN CORPUSCULAR VOLUME 100.9 fL (81-99); MONOCYTES # (AUTO) 0.8 (0.2-0.8); MONOCYTES % 14.8 % (4.4-11.3); NEUTROPHILS # (AUTO) 1.9 (2.1-6.9); NEUTROPHILS % 34.7 % (38.7-80.0); PLATELET COUNT 196 x10e3/uL (140-360); RED BLOOD COUNT 3.17 x10e6/uL (4.3-5.7); RED CELL DISTRIBUTION WIDTH 15.8 % (11.7-14.4)
[2018-07-04 05:22] LABS: ALANINE AMINOTRANSFERASE 115 IU/L (0-55); ALBUMIN 3.1 g/dL (3.5-5.0); ALBUMIN/GLOBULIN RATIO 0.9 (0.8-2.0); ALKALINE PHOSPHATASE 53 IU/L (40-150); ANION GAP 9.6 mmol/L (8-16); BLOOD UREA NITROGEN 27 mg/dL (7-26); BUN/CREATININE RATIO 27 (6-25); CALCIUM 8.9 mg/dL (8.4-10.2); CARBON DIOXIDE 32 mmol/L (22-29); CHLORIDE 99 mmol/L (98-107); CREATININE, SERUM 1.01 mg/dL (0.72-1.25); EST GLOMERULAR FILTRATION RATE > 60 ML/MIN (60-); GLUCOSE 93 mg/dL (74-118); POTASSIUM 3.6 mmol/L (3.5-5.1); SODIUM 137 mmol/L (136-145)
[2018-07-04] MEDS: FUROSEMIDE INJ 10 MG/ML 4 ML VIAL IV SCH (09:00)
[2018-07-04] MEDS: ASPIRIN 81 MG CHEW TAB PO SCH (09:00)
[2018-07-04] MEDS: NITROGLYCERIN 0.1MG/HR PATCH TOP SCH (09:00)
[2018-07-04] MEDS: CARVEDILOL 3.125 MG TAB PO SCH ×2 (09:00→17:00)
[2018-07-04] MEDS: PANTOPRAZOLE SOD 40 MG TABEC PO SCH (09:00)
--- NOTE | 2018-07-04 10:00 | NUR ---
patient to ct for thora and ct guided biopsy
[2018-07-04] MEDS ORDERED: LIDOCAINE HCL 1% LOCAL INJ 20 ML VIAL ONE ×2 (10:07→13:28)
[2018-07-04] MEDS ORDERED: MIDAZOLAM HCL 2 MG/2 ML VIAL ONE (10:44)
[2018-07-04] MEDS ORDERED: FENTANYL CITRATE/PF 100MCG/2 ML INJ ONE (10:44)
--- NOTE | 2018-07-04 11:42 | Diagnostic Imaging Report ---
ULTRASOUND: Right thorax TECHNIQUE: Ultrasound evaluation of the right hemithorax. HISTORY: Chest pain, shortness of breath COMPARISON: CT of the chest July 02, 2018, chest radiograph July 03, 2018. DISCUSSION: None, see impression. IMPRESSION: A small right pleural effusion is confirmed. Signed by: Dr. Girish Watkins D.O., M.M.M. on 07/04/2018 11:39 AM
--- NOTE | 2018-07-04 12:00 | NUR ---
back to ICU, patient in prone position, transferred from stretcher to bed, patient complains of chest tightness. breath sounds diminished on right side. O2 sat is 90 on 4L, previously was 99 on 3L. Paged XRay to come to the post procedure Xray sooner. Upon reading, Dr. Hylton calls and states pneumo has developed, so patient to go back to CT for chest tube placement. will continue to monitor
[2018-07-04] MEDS ORDERED: GELATIN SPONGE 12-7MM ONE (13:28)
--- NOTE | 2018-07-04 13:35 | NUR ---
Patient to CT for chest tube
--- NOTE | 2018-07-04 15:30 | Diagnostic Imaging Report ---
EXAMINATION: CHEST SINGLE (PORTABLE) INDICATION: Post lung biopsy. COMPARISON: CT lung biopsy 07/04/18 and chest radiograph 07/03/18. FINDINGS: TUBES and LINES: None. LUNGS: Partial atelectasis in the right lower lung from associated pneumothorax. Opacity in the right upper lung corresponding to known lung nodule. Mild intersitial opacities on the left. PLEURA: Large right sided pneumothorax measuring up to 3.4 cm laterally. No evidence of mediastinal shift. Small right pleural effusion. HEART AND MEDIASTINUM: The cardiomediastinal silhouette is unremarkable. BONES AND SOFT TISSUES: No acute osseous lesion. Soft tissues are unremarkable. UPPER ABDOMEN: No free air under the diaphragm. IMPRESSION: Large right sided pneumothorax post lung biopsy without evidence of mediastinal shift. Above findings discussed with the ICU and IR team on 07/04/18 at 1215 PM and the patient will be coming to IR for chest tube placement. Signed by: Dr. Korin Hylton MD on 07/04/2018 3:27 PM
--- NOTE | 2018-07-04 16:15 | NUR ---
Nutrition Screen Note RD Recommendation for Physician: -Continue cardiac diet as medically appropriate -Encourage PO and hydration Plan of Care: RD following, monitoring for tolerance and adequacy Nutrition reason for involvement: RN consult no reason stated Primary Diagnose(s): 1. Acute decompensated systolic heart failure with radha gross volume overload. 2. Elevated troponin, likely demand myocardial infarct secondary to congestive heart failure exacerbation. 3. Bilateral carotid bruits. PMH: HTN, PVD, COPD, diverticulosis, neuropathy, smoker Ht: 70in Wt: 200.38lb BMI: 28.8kg/m2 IBW: 166lb RD Assessment: (07/04) Chart reviewed. Labs and meds reviewed. 77 yo M, who presented to the hospital with the complaints of shortness of breath on exertion. Pt had thoracentesis on 07/03 with removal of 700cc fluids. Heart cath is scheduled for tomorrow after lung biopsy, per RN. During my assessment, pt reports of appetite being about the same and eager to eat. Pt denies any recent weight loss. No complain of N/V/D or abdominal pain. No BM x 2 days, notified RN. Pt has denture but no complain of chewing or swallowing difficulty noted. Will continue to monitor and follow. Current Diet: cardiac diet Malnutrition Evaluation (07/04/18) The patient does not meet criteria for a specified degree of malnutrition at this time. Will re-evaluate at follow-up as appropriate. Diet Education Needs Assessment: Diet education not indicated. Nutrition Care Level: low Signed: Roro Rendon, MS, RD, LD
--- NOTE | 2018-07-04 17:20 | Diagnostic Imaging Report ---
EXAMINATION: CHEST SINGLE (PORTABLE) INDICATION: Status post chest tube placement. COMPARISON: CT lung biopsy 07/04/[address] chest tube placement 07/04/18. Chest radiograph 07/04/18 at 1230PM. FINDINGS: TUBES and LINES: Interval placement of a right apical pigtail chest tube. LUNGS/PLEURA: Interval re-aeration of the right lung status post chest tube placement. Interval substantially decreased right pneumothorax with a medial apical component which persists. Opacity in the right upper lung corresponding to known nodule. Patchy opacities at the lung bases, likely atelectasis. Small right pleural effusion. HEART AND MEDIASTINUM: The cardiomediastinal silhouette is unremarkable. BONES AND SOFT TISSUES: No acute osseous lesion. Soft tissues are unremarkable. UPPER ABDOMEN: No free air under the diaphragm. IMPRESSION: Status post right sided chest tube placement with substantial decrease in size of right sided pneumothorax and re-expansion fo the right lung. Small right pleural effusion. Patchy opacities at the lung bases, likely atelectasis. Signed by: Dr. Korin Hylton MD on 07/04/2018 5:16 PM
--- NOTE | 2018-07-04 17:29 | Diagnostic Imaging Report ---
1. CT Guided Right Upper Lobe Pulmonary Nodule Biopsy 2. Terminated procedure- ultrasound guided thoracentesis Consent: The nature of the procedure, including its risks, benefits and alternatives was explained to the patient who understood and gave consent. Operators: Korin Hylton MD ANESTHESIA: Intravenous conscious sedation was administered by radiology nursing. Continuous hemodynamic and respiratory monitoring was performed, including the use of pulse oximetry. Sedation start time: 1042 AM; Sedation end time: 1142 AM Total sedation time: 60 minutes Medications: 10 cc of 1% subcutaneous lidocaine Fentanyl and Versed per nursing administration records TECHNIQUE/FINDINGS: Initial ultrasound was performed with the patient in the upright position which demonstrated a small right pleural effusion. Given the small effusion, patient's satisfactory oxygen saturation and absence of symptoms, no thoracentesis was performed. The patient was placed in the supine position. Scans were obtained through the upper lung which demonstrated a right upper lobe pulmonary nodule. A clear path to the lesion was identified. The skin of the right anterior chest was marked, prepped, draped and anesthetized with 1% lidocaine. With CT guidance, a 19-gauge needle was inserted percutaneously into the right upper lobe nodule with a single pleural puncture. Subsequently, three 21 gauge fine needle aspirates were obtained. With a 20-gauge core biopsy device, four core biopsies were obtained with CT guidance. Samples were provided to Pathology who confirmed sample adequacy. Repeat CT demonstrated small amount of perilesional hemorrhagic products and no evidence of pneumothorax. The patient's oxygen saturations were stable. The introducer needle was removed. Sterile bandage was placed and the patient was immediately positioned in prone position on the stretcher for post procedural recovery. CONDITION/COMPLICATIONS: No immediate complication. FINDINGS: Small right pleural effusion with no thoracentesis performed. Right upper lobe pulmonary nodule status post CT guided biopsy. IMPRESSION: CT guided fine needle aspiration and core biopsy of right upper lobe pulmonary nodule as above. Post procedural chest radiographs will be obtained to evaluate for pneumothorax. Small right pleural effusion. Given the small effusion, patient's satisfactory oxygen saturation and absence of symptoms, no thoracentesis was performed. Signed by: Dr. Korin Hylton MD on 07/04/2018 5:26 PM
--- NOTE | 2018-07-04 18:44 | Diagnostic Imaging Report ---
CT Guided Right Chest Tube Placement Comparison: CT lung biopsy 07/04/18 and chest radiograph 07/04/18 at 1217PM. Consent: The nature of the procedure, including its risks, benefits and alternatives was explained to the patient who understood and gave consent. Operators: Korin Hylton MD ANESTHESIA: Intravenous conscious sedation was administered by radiology nursing. Continuous hemodynamic and respiratory monitoring was performed, including the use of pulse oximetry. Medications: 10 cc of 1% subcutaneous lidocaine Fentanyl per nursing administration records TECHNIQUE: The patient was placed in the supine position. Scans were obtained through the right lung which demonstrated a large right sided pneumothorax. A clear path to the pneumothorax via an anterior approach was identified. The skin of the right anterior chest was marked, prepped, draped and anesthetized with 1% lidocaine. With CT guidance, an 18 gauge needle was inserted percutaneously into the right pleural space. Subsequently, an .35'' Amplatz wire was placed. Then with CT guidance, an 8 Fr Arce-Omer pigtail catheter was placed into the right upper pleural space. The catheter was connected to wall suction and the pneumothorax was aspirated. The patient's oxygen saturation was noted to have improved. Repeat CT demonstrated substantial improvement of the pneumothorax with a small residual pneumothorax. The catheter was secured with two sutures and a sterile dressing was placed. No evidence of immediate complication. The patient was transported to the ICU in stable condition. FINDINGS: Large right sided pneumothorax on initial CT. Substantial decrease in size of pneumothorax with small residual pneumothorax post right apical chest tube placement. Right upper lobe pulmonary nodule is again noted. Small right pleural effusion. IMPRESSION: CT guided right sided chest tube placement for large pneumothorax. Post procedural CT demonstrating substantial improvement of pneumothorax. Signed by: Dr. Korin Hylton MD on 07/04/2018 6:41 PM
[2018-07-05] VITALS (55 sets, daily range): BP systolic 97–139; BP diastolic 40–90
[2018-07-05] MEDS: ALBUTEROL/IPRATROPIUM 3 ML NEB NEB SCH ×4 (01:20→19:20)
[2018-07-05 05:07] LABS: BASOPHILS % 0.1 % (0.0-1.0); EOSINOPHILS # (AUTO) 0.1 (0.0-0.4); EOSINOPHILS % 1.3 % (0.0-6.0); HEMATOCRIT 34.2 % (38.2-49.6); HEMOGLOBIN 11.5 g/dL (14.0-18.0); LYMPHOCYTES # (AUTO) 2.6 (1.0-3.2); LYMPHOCYTES % 38.6 % (18.0-39.1); MEAN CORPUSCULAR HEMOGLOBIN 34.3 pg (28-32); MEAN CORPUSCULAR HGB CONC 33.6 g/dL (31-35); MEAN CORPUSCULAR VOLUME 102.1 fL (81-99); MONOCYTES # (AUTO) 0.7 (0.2-0.8); MONOCYTES % 10.6 % (4.4-11.3); NEUTROPHILS # (AUTO) 3.3 (2.1-6.9); NEUTROPHILS % 49.1 % (38.7-80.0); PLATELET COUNT 177 x10e3/uL (140-360); RED BLOOD COUNT 3.35 x10e6/uL (4.3-5.7); RED CELL DISTRIBUTION WIDTH 15.5 % (11.7-14.4)
[2018-07-05 05:21] LABS: INR 0.94; PROTHROMBIN TIME 13.4 seconds (11.9-14.5)
[2018-07-05 05:22] LABS: PARTIAL THROMBOPLASTIN TIME 29.6 seconds (23.8-35.5)
[2018-07-05 05:29] LABS: ALANINE AMINOTRANSFERASE 94 IU/L (0-55); ALBUMIN 3.2 g/dL (3.5-5.0); ALBUMIN/GLOBULIN RATIO 0.9 (0.8-2.0); ALKALINE PHOSPHATASE 53 IU/L (40-150); ANION GAP 13.3 mmol/L (8-16); BLOOD UREA NITROGEN 24 mg/dL (7-26); BUN/CREATININE RATIO 25 (6-25); CALCIUM 9.3 mg/dL (8.4-10.2); CARBON DIOXIDE 30 mmol/L (22-29); CHLORIDE 100 mmol/L (98-107); CREATININE, SERUM 0.96 mg/dL (0.72-1.25); EST GLOMERULAR FILTRATION RATE > 60 ML/MIN (60-); GLUCOSE 94 mg/dL (74-118); SODIUM 138 mmol/L (136-145)
[2018-07-05 05:47] LABS: POTASSIUM 5.3 mmol/L (3.5-5.1)
--- NOTE | 2018-07-05 06:05 | NUR ---
INFROMED DR. RESENDEZ OF THE POTASSIUM OF 5.3. NS @50ML/HR WAS ORDERED
[2018-07-05] MEDS ORDERED: SODIUM CHLORIDE 0.9% 1000ML 1,000 ML IV SCH ×2 (06:15→17:59)
--- NOTE | 2018-07-05 07:10 | NUR ---
Patient received awake, alert and Ox3. Denies any pain or discomfort. Respirations are even and unlabored. Telemetry shows [id number]. V/S are stable. Patient is NPO for heart catheterization today and consent has been signed.
[2018-07-05] MEDS: ASPIRIN 81 MG CHEW TAB PO SCH (09:00)
[2018-07-05] MEDS: PANTOPRAZOLE SOD 40 MG TABEC PO SCH (09:00)
[2018-07-05] MEDS: NITROGLYCERIN 0.1MG/HR PATCH TOP SCH (09:00)
[2018-07-05] MEDS: CARVEDILOL 3.125 MG TAB PO SCH ×2 (09:00→17:00)
--- NOTE | 2018-07-05 11:00 | NUR ---
Dr. Sosa, Sr. here to see patient.
[2018-07-05] MEDS ORDERED: FENTANYL CITRATE/PF 100MCG/2 ML INJ ONE (16:24)
[2018-07-05] MEDS ORDERED: MIDAZOLAM HCL 2 MG/2 ML VIAL ONE (16:24)
[2018-07-05] MEDS ORDERED: SODIUM CHLORIDE 0.9% 1000ML 1,000 ML ONE (16:25)
[2018-07-05] MEDS ORDERED: VERAPAMIL HCL 2.5 MG/ML 2 ML VIAL ONE (16:25)
[2018-07-05] MEDS ORDERED: HEPARIN SOD/SOD CHLORIDE 2,000 ML ONE (16:25)
[2018-07-05] MEDS ORDERED: IOPAMIDOL 370 MG/ML 200 ML INFUS..BTL INJ ONE (16:25)
[2018-07-05] MEDS ORDERED: LIDOCAINE HCL 2% LOCAL 20 ML VIAL ONE (16:25)
[2018-07-05] MEDS ORDERED: SODIUM CHLORIDE 0.9% 500ML 500 ML ONE (18:38)
[2018-07-06] VITALS (45 sets, daily range): BP systolic 90–158; BP diastolic 41–111
[2018-07-06] MEDS: ALBUTEROL/IPRATROPIUM 3 ML NEB NEB SCH ×4 (00:30→19:20)
--- NOTE | 2018-07-06 01:31 | Operative Report ---
DATE OF PROCEDURE: July 05, 2018 TITLE OF REPORT: Cardiac catheterization. PROCEDURES PERFORMED 1. Left heart cardiac catheterization with coronary angiography. 2. Left ventriculography. INDICATION FOR PROCEDURE: A 77-year-old gentleman who presented with acute decompensated systolic heart failure, respiratory distress, near respiratory failure and had non-ST elevation myocardial infarction. The patient was medically optimized and then taken to the laborer wood preserving plant first procedure today. DESCRIPTION OF PROCEDURE: After risks, benefits, pros and cons of today's procedure were explained, patient agreed to proceed. Patient was brought to the cardiac catheterization laboratory where the right groin was prepped and draped in the usual sterile fashion. Lidocaine solution 1% was used to numb the right groin region. Access to the right femoral artery was obtained and a 4-Turkish femoral sheath was placed. Selective coronary angiography of the [place] left coronary arteries was performed with a JL4 catheter. This revealed ostial 95% left main lesion, reasonable caliber LAD and circumflex artery and RCA was seen to be completely backfilled from left to right collaterals and the RCA was noted to have a 100% proximal to mid occlusion. At this point in time, we realized that this is a surgical 3-vessel CAD and decided not to take anymore pictures to minimize any irritation of the LV myocardium. At that point in time, we took an angled pigtail catheter, placed in the ventricle for ventriculography and hemodynamic assessment of ventricular filling pressures. We did a pullback gradient across the aortic valve, noted a 16 mm peak to peak gradient across that valve. At that point in time we decided to conclude the case. Femoral angiogram revealed incidental 80% right external aortic artery stenosis and manual compression was applied successfully achieving hemostasis. COMPLICATIONS: None. ESTIMATED BLOOD LOSS: Minimal. FINDINGS 1. The ostial left main has a 95% calcified complex left main lesion and gives rise to LAD and circumflex artery. 2. The LAD with diffuse mild disease proximally. The remainder of this vessel and its branches has mild luminal irregularities and has a reasonable caliber vessel. 3. The left circumflex artery gives rise to anterolateral marginal branch and mid marginal branch and terminates in the posterolateral marginal branch. The mid marginal branch is the largest vessel and just mild luminal irregularities. 4. The RCA is occluded proximally and flow was seen to the right PDA and right PLV via left to right collaterals. 5. The left ventricular ejection fraction was 15% to 20% with severe global hypokinesis. End-diastolic pressure is 16 mmHg. There is about a 16-mm peak to peak gradient across the aortic valve. PLAN/RECOMMENDATIONS 1. We decided to conclude the case as he has surgical 3-vessel CAD. 2. Complicating this patient's case is the presence of a right lung nodule, which has a high likelihood to be cancer. 3. We will go ahead and consult CV surgery for opinion in terms of management option. Job#: [id number] KANDY
[2018-07-06 04:56] LABS: BASOPHILS % 0.2 % (0.0-1.0); EOSINOPHILS # (AUTO) 0.1 (0.0-0.4); EOSINOPHILS % 1.7 % (0.0-6.0); HEMATOCRIT 34.1 % (38.2-49.6); HEMOGLOBIN 11.3 g/dL (14.0-18.0); LYMPHOCYTES # (AUTO) 2.4 (1.0-3.2); LYMPHOCYTES % 40.5 % (18.0-39.1); MEAN CORPUSCULAR HEMOGLOBIN 33.9 pg (28-32); MEAN CORPUSCULAR HGB CONC 33.1 g/dL (31-35); MEAN CORPUSCULAR VOLUME 102.4 fL (81-99); MONOCYTES # (AUTO) 0.7 (0.2-0.8); MONOCYTES % 11.5 % (4.4-11.3); NEUTROPHILS # (AUTO) 2.7 (2.1-6.9); NEUTROPHILS % 45.9 % (38.7-80.0); PLATELET COUNT 163 x10e3/uL (140-360); RED BLOOD COUNT 3.33 x10e6/uL (4.3-5.7); RED CELL DISTRIBUTION WIDTH 15.7 % (11.7-14.4)
[2018-07-06 05:22] LABS: BLOOD UREA NITROGEN 21 mg/dL (7-26); BUN/CREATININE RATIO 25 (6-25); CALCIUM 8.7 mg/dL (8.4-10.2); CARBON DIOXIDE 25 mmol/L (22-29); CHLORIDE 106 mmol/L (98-107); CREATININE, SERUM 0.83 mg/dL (0.72-1.25); EST GLOMERULAR FILTRATION RATE > 60 ML/MIN (60-); GLUCOSE 85 mg/dL (74-118); SODIUM 139 mmol/L (136-145)
[2018-07-06] MEDS: CARVEDILOL 3.125 MG TAB PO SCH ×2 (09:00→19:47)
[2018-07-06] MEDS: ASPIRIN 81 MG CHEW TAB PO SCH (09:00)
[2018-07-06] MEDS: PANTOPRAZOLE SOD 40 MG TABEC PO SCH (09:00)
[2018-07-07] VITALS (38 sets, daily range): BP systolic 96–151; BP diastolic 42–83
[2018-07-07] MEDS: ALBUTEROL/IPRATROPIUM 3 ML NEB NEB SCH ×4 (02:30→19:00)
--- NOTE | 2018-07-07 04:54 | Consultation ---
DATE OF CONSULTATION: July 06, 2018 REASON FOR CONSULT: Coronary artery disease, congestive heart failure; requested by Dr. Linda Sosa. HISTORY: I saw and evaluated this patient on July 06, 2018. He is a 77-year-old man with a history of heavy smoking, alcohol use, COPD and hypertension, who presented with several weeks of progressively worsening dyspnea, lower extremity edema, increasing abdominal girth. He was quite short of breath on admission. Cardiac enzymes were elevated. EKG did not demonstrate any changes. BNP was also elevated. Chest x-ray showed increased pulmonary markings as well as a right upper nodule. Chest CT performed on 07/02/2018 showed a spiculated right upper lung nodule 1.3 cm in diameter that was highly suspicious for lung cancer. A needle biopsy has been performed as well as a thoracentesis that returned approximately 700 mL of fluid. The lung biopsy was results are pending. There was also an indeterminate right adrenal mass measuring 1.3 cm and a left adrenal nodule measuring 2.0 cm. There was cholelithiasis as well as nonspecific gallbladder wall thickening. There was nonspecific mediastinal and right hilar lymph nodes measuring up to 1 cm. There was a subcarinal lymph node measuring approximately 1 to 1.5 cm. Patient has been treated for severe volume overload. He has been diuresed and the thoracentesis has been performed. He is breathing more comfortably, although he is still short of breath and needs to sit up at night. BNP is elevated at 1300. Peak troponin was 0.618 with CK-MB 3.9. Patient denies any history of prior myocardial infarction or stroke. He has been having PND, orthopnea, and peripheral edema for several months. No fever or chills. Steel Heater is Dr. Etienne. Police Captain is Dr. Radha Sosa. PAST MEDICAL HISTORY: Positive for hypertension and COPD. PAST SURGICAL HISTORY: Positive for polypectomy during colonoscopy. FAMILY HISTORY: Mother in her 90s and had a brain tumor. Father at age 64 of a heart attack. He had several brothers who early, cause unclear. SOCIAL HISTORY: One pack per day smoker for many years. Claims he quit about a month ago but this is not clear. He uses alcohol steadily. No clear history of alcoholism. No IV drugs. ALLERGIES: PENICILLIN. MEDICATIONS AT HOME: Include lisinopril. REVIEW OF SYSTEMS: GENERAL: Positive for fatigue and malaise. NEUROLOGIC: Negative for focal weakness in the extremities or dysarthria. HEENT: Positive for some decreased hearing. Negative for decreased vision. CARDIAC: Negative for angina or palpitations. PULMONARY: Positive for shortness of breath. Negative for wheezing. GI: No constipation or diarrhea. : Negative for hematuria or dysuria. ENDOCRINE: Negative for polyuria or polydipsia. VASCULAR: Negative for claudication. SKIN: Negative for rashes or itching. HEMATOLOGIC: Negative for clotting or bleeding. INFECTIOUS: Negative for fevers or sweating. PSYCHIATRIC: Negative for depression or anxiety. PHYSICAL EXAMINATION GENERAL: A well-developed, well-nourished man sitting up in bed in the ICU. VITAL SIGNS: Blood pressure 140/70, pulse 80 and regular, respirations 16 and unlabored. NECK: Supple and nontender. There is JVD to approximately 2 cm bilaterally. CARDIAC: Regular rate and rhythm. Normal S1 and S2. There is a 3/6 murmur heard best at the upper sternal borders. LUNGS: Have scattered crackles and decreased breath sounds at both bases. ABDOMEN: Globoid, benign. Good bowel sounds. No fluid wave. BACK: No CVA tenderness. No muscular spasms. EXTREMITIES: No cyanosis, clubbing. There is 2+ edema to the knees bilaterally. VASCULAR: Carotids 2+/2+ bilaterally. Radials and brachials 2+/2+ bilaterally. Ulnars 1+/2+ bilaterally. Femorals 1+/2+ bilaterally. No pulses palpable distal to either femoral artery in either lower extremity. MUSCULOSKELETAL: Full range of motion at all joints. No joint swelling. NEUROLOGIC: Cranial nerves II-XII intact. Sensation intact to light touch and pinprick bilaterally. Strength 5/5 in all extremities. LYMPHATICS: Negative for cervical, clavicular, femoral adenopathy. LABORATORIES AND IMAGING: Chest x-ray and CT scan reports are as above. I was not able to access the images on the computer today and neither with his nurses. White count 5.8, hemoglobin 11.3, hematocrit 34.1, platelet count 157,000. INR is 0.94 with PT 13.4 and PTT 29.6. Sodium 139, potassium 4.0, BUN is 21, creatinine 0.83. Liver function tests were slightly elevated with AST 42 and ALT 94. Alkaline phosphatase was normal as was the total bilirubin. Albumin is depressed at 3.2, but total protein is normal at 6.6. IMPRESSION: Ejection fraction by left ventriculogram reportedly 20% with severe three-vessel coronary artery disease. Patient also has a lung nodule that is suspicious for carcinoma. Further evaluation underway and biopsy is pending. Patient is a candidate for coronary artery bypass grafting after further evaluation. He expresses an interest in proceeding with cardiac surgery evaluation. Thank you very much for asking me to see this nice man. Job#: [id number] KRISTY
[2018-07-07 05:49] LABS: ANION GAP 12.9 mmol/L (8-16); BLOOD UREA NITROGEN 18 mg/dL (7-26); BUN/CREATININE RATIO 20 (6-25); CALCIUM 8.9 mg/dL (8.4-10.2); CARBON DIOXIDE 23 mmol/L (22-29); CHLORIDE 104 mmol/L (98-107); CREATININE, SERUM 0.89 mg/dL (0.72-1.25); EST GLOMERULAR FILTRATION RATE > 60 ML/MIN (60-); GLUCOSE 93 mg/dL (74-118); POTASSIUM 3.9 mmol/L (3.5-5.1); SODIUM 136 mmol/L (136-145)
--- NOTE | 2018-07-07 08:40 | Diagnostic Imaging Report ---
EXAMINATION: CHEST SINGLE (PORTABLE) INDICATION: Chest pain. Shortness of breath. Chest tube. COMPARISON: Chest x-ray at 53 hours. FINDINGS: TUBES and LINES: Right sided pigtail percutaneous catheter slightly lower in position than on the prior examination. LUNGS/PLEURA: Mild bibasilar subsegmental atelectasis. Mild prominence of the pulmonary vasculature bilaterally. Connections bilateral small pleural effusions. HEART AND MEDIASTINUM: The cardiomediastinal silhouette is unremarkable. BONES AND SOFT TISSUES: No acute osseous lesion. UPPER ABDOMEN: No free air under the diaphragm. IMPRESSION: No recurrent pneumothorax. Signed by: Dr. Skylar Hall M.D. on 07/07/2018 8:36 AM
[2018-07-07] MEDS: ASPIRIN 81 MG CHEW TAB PO SCH (08:48)
[2018-07-07] MEDS: CARVEDILOL 3.125 MG TAB PO SCH ×2 (08:49→17:00)
[2018-07-07] MEDS: PANTOPRAZOLE SOD 40 MG TABEC PO SCH (08:49)
[2018-07-07] MEDS: FUROSEMIDE 40 MG TAB PO SCH (12:09)
[2018-07-07 16:13] LABS: ABG HCO3 26 mmol/L (23-28); ABG PCO2 33 mmHg (41-51); ABG PH 7.51 (7.31-7.41); ABG PO2 69 mmHg (80-105)
[2018-07-07] MEDS ORDERED: ENOXAPARIN SOD INJ 40 MG/0.4 ML SYR SC SCH (17:00)
[2018-07-08] VITALS (22 sets, daily range): BP systolic 89–127; BP diastolic 34–95
--- NOTE | 2018-07-08 09:15 | NUR ---
Dr. Sosa here, wants to go ahead and initiate transfer to [facility].
[2018-07-08] MEDS: FUROSEMIDE 40 MG TAB PO SCH (09:38)
[2018-07-08] MEDS: PANTOPRAZOLE SOD 40 MG TABEC PO SCH (09:38)
[2018-07-08] MEDS: ASPIRIN 81 MG CHEW TAB PO SCH (09:38)
[2018-07-08] MEDS: CARVEDILOL 3.125 MG TAB PO SCH (09:39)
[2018-07-08] MEDS: ALBUTEROL/IPRATROPIUM 3 ML NEB NEB SCH ×3 (09:52→14:22)
--- NOTE | 2018-07-08 10:22 | NUR ---
Dr. Etienne says it is ok that patient receives a step-down level of care, order entered
--- NOTE | 2018-07-08 10:31 | Diagnostic Imaging Report ---
PROCEDURE: A single AP view of the chest. COMPARISON: 07/07/2018. INDICATIONS: CHEST TUBE, PNEUMOTHORAX FINDINGS: Right pleural pigtail drainage catheter is again noted. No appreciable pneumothorax. Stable cardiomediastinal contour with pulmonary venous congestion and trace bilateral pleural effusions, along with subsegmental atelectasis in the dependent lower lobes. No acute osseous abnormality. IMPRESSION: Right pleural pigtail drainage catheter without recurrent pneumothorax identified. Otherwise stable findings of mild fluid overload relative to 07/07/2018. Dictated by: Cliff Crowley M.D. on 07/08/2018 at 10:41 Electronically approved by: Cliff Crowley M.D. on 07/08/2018 at 10:41
--- NOTE | 2018-07-08 11:44 | NUR ---
chest tube removed by Dr. Crowley, chest tube had 85 cc's goldish of drainage since inserted, no additional drainage noted on this shift.
[2018-07-08] MEDS: MORPHINE SULFATE 2 MG/ML SYR IV PRN (11:46)
--- NOTE | 2018-07-08 12:17 | NUR ---
ORDERS TODAY TO INITIATE TRANSFER TO [facility] UNDER DR BEATRIZ TROY FOR CABG ORDERS TO DOWNGRADE TO IMCU CM SPOKE WITH PT AND HE IS AGREEABLE TO TRANSFER CHOICE LETTER SIGNED AND ON CHART MOT INITIATED AND SIGNED BY PT AND GIVEN TO NURSE TRACI CRAWFORD CALLED [facility] [phone] SPOKE WITH KAYLEE FAXED H+p AND FACE SHEET TO [phone] CONFIRMATION REC'D AWAIT ROOM ASSIGNMENT
--- NOTE | 2018-07-08 14:00 | NUR ---
Report called to Micki at [facility], bed 1036
--- NOTE | 2018-07-08 15:27 | NUR ---
reached out to Dr. Bob, she states she has not received the immo's on the lung biopsy sample, they were possibly going to be sent today at 2 from her report earlier, but they didnt come. She states give her number to [facility] so they can call for information. Number included in packet.
--- NOTE | 2018-07-08 15:35 | NUR ---
REPORT GIVEN TO [facility]
--- NOTE | 2018-07-08 15:42 | Diagnostic Imaging Report ---
Examination: Single AP view of the chest. COMPARISON: Earlier 07/08/2018 INDICATION: Post chest tube removal DISCUSSION: See impression IMPRESSION: Interval removal of right-sided chest tube without recurrent pneumothorax. Otherwise stable examination relative to earlier 07/08/2018. Signed by: Dr. Cliff Crowley M.D. on 07/08/2018 3:39 PM
[2018-07-08] MEDS ORDERED: ATORVASTATIN 10 MG TAB PO SCH (21:00)
--- NOTE | 2018-07-09 14:45 | Discharge Summary ---
See also ER notes and history and physical. Patient presented with shortness of breath. The database was obtained and monitored. See also serial laboratory, imaging and procedure notes per electronic medical record reviewed. The patient had congestive heart failure on arrival. Chronic LV systolic. He was diuresed aggressively as tolerated. He required thoracenteses, fluid benign. Hypertension was managed medically. Lipids were controlled medically. Blood pressure was medically controlled. PPD was negative. The patient has had anemia with admission hemoglobin 12.4 mcg and MCH elevated. Reticulocyte count 2.4, elevated. Pro time and PTT normal. D-dimer elevated 1.17. Urinalysis clear. Pending urine metanephrines. Transudative pleural fluid. RPR nonreactive. Viral hepatitis A, B and C antibodies negative. Influenza antigen A and B negative. Elevated IgG and IgM. Elevated lambda and kappa light chains. See also serial chemistries. Admissions transaminases elevated and these fell progressively while here and while diuresing the patient. Nature peptide on admission 1330. BUN 30, creatinine 1.05 on arrival. A1c was 5.6. Patient had trace elevation serial cardiac enzymes. Admission troponin was 0.61 with CPK normal at 96 and CK-MB normal at 3.9. AST 87, ALT 173. Alkaline phosphatase was normal at 76. Troponin I was 1.369 on July 01 with MB of 9. B12 level was 1405, high. Folic acid level 18.6, high. The p.m. cortisol level 15.6, normal being 2 to 11.9. AST 42, ALT 94 on July 05. See also serial imaging studies. July 01 renal ultrasound unremarkable. Prostate within normal limits. Left pleural effusion. Carotid Doppler requested. Report pending still. Admission ER chest x-ray prominent cardiac silhouette. Basilar opacities. Blunted costophrenic sulci. Calcified lymph node right axilla. On July 01, CT abdomen and pelvis, chest. spiculated right upper lung 1.3 cm nodule highly suspicious for primary lung cancer. Emphysema and fluid overload, pleural effusions, gallstones. Right adrenal gland nodule 1.3 cm. HIDA scan negative for acute cholecystitis. See also chest CT report as above. Serial chest x-rays monitored. Lower extremities bilateral venous Dopp scan requested. Final report pending. Specialty Sales Representative's impression no DVT. Patient underwent biopsy of his lung nodule on the and required chest tube postoperatively. Chest tube has since had little drainage with no further pneumothorax. Chest x-ray July 08, interval removal of the right-sided chest tube without recurrence of pneumothorax. Echocardiogram with low ejection fraction. See report when available. The patient underwent cardiac catheterization in July 05. See report. Ultimately, the patient was transferred to the [facility] for consideration for further treatment of his coronary artery disease. See also consultations as required per intensive-pulmonary medicine category consultant, cardiology, cardiovascular surgery, and hematology. FINAL IMPRESSION: 1. As above. 2. Respiratory failure, improved. 3. Congestive heart failure, chronic, with ejection fraction approximately 20%. LV systolic. chronic failure. 4. Multiple severe medical problems including right upper lung nodule biopsy. Pathology from the biopsy report is still pending, according to the electronic medical record and according to the discussions per the patient's ICU nurse and her pathologist yesterday afternoon. 5. Right adrenal mass. Evaluation so far as above. Metanephrine is pending. 6. Cholelithiasis. 7. Post thoracentesis. Normal thorax, post chest tube, this admission. 8. Elevated cardiac enzymes compatible with [id number] myocardial infarction. 9. Hypertension. 10. Chronic obstructive pulmonary disease. 11. Chronic anemia, evaluation underway. 12. Recent esophagogastroduodenoscopy, benign. 13. Elevated transaminases secondary to congestive heart failure, improving. 14. Chronic tobacco use. 15. Penicillin allergy. Again, the patient is transferred to [facility] for coronary artery disease for further treatment. Will need followup regarding the above ongoing difficulties also. KARLI MIRZA MD Job#: [id number]
--- NOTE | 2018-07-10 08:14 | Diagnostic Imaging Report ---
PROCEDURE: CHEST SINGLE (PORTABLE) COMPARISON: None. INDICATIONS: POST THORACENTESIS FINDINGS: LUNGS: Right basilar opacity likely secondary to atelectasis. Right apical nodular density not well visualized on this study. PLEURA: No pneumothorax status post left thoracentesis. Left pleural effusion near completely gone. Small right pleural effusion present. HEART & MEDIASTINUM: The heart is within normal size-limits. BONES & SOFT TISSUES: No acute findings. CONCLUSION: Small right pleural effusion with a basilar opacity. Grant Montoya D.O. Dictated by: Grant Montoya D.O. on 07/10/2018 at 8:24 Electronically approved by: Grant Montoya D.O. on 07/10/2018 at 8:24
--- NOTE | 2018-07-14 13:25 | Consultation ---
DATE OF CONSULTATION: July 06, 2018 CONSULTATION TO: Dr. Cliff Anne. HISTORY OF PRESENT ILLNESS: Mr. Toscano is a 77-year-old male referred to me for evaluation of lung cancer. The patient had presented with shortness of breath, subsequently was kept in ICU. SOCIAL HISTORY: History of smoking. FAMILY HISTORY: Noncontributory. ALLERGIES: REPORTED PENICILLIN. MEDICATIONS 1. Albuterol. 2. Aspirin. 3. Protonix. 4. Sodium chloride. 5. Ondansetron. 6. Morphine. 7. Coreg. REVIEW OF SYSTEMS HEENT: Normal. CARDIAC: History of 3-vessel disease. RESPIRATORY: History of congestive heart failure. GI: History of adenocarcinoma of the colon in 2016. : Normal. MUSCULOSKELETAL: Normal. SKIN AND BREASTS: Normal. NEUROENDOCRINE: Essentially normal. PHYSICAL EXAMINATION GENERAL: A moderately built male. NECK: No palpable adenopathy. HEART: Within normal limits. LUNGS: Coarse crepitations. ABDOMEN: Obese. RECTAL: Deferred. CENTRAL NERVOUS SYSTEM: Essentially normal. EXTREMITIES: Essentially normal. LABORATORY DATA: Lab shows a sodium of 139, potassium 4.0, chloride 76, CO2 of 25, BUN 21, creatinine 0.8, glucose 85. Hemoglobin of 11.3, hematocrit 34.1, white count 5800, platelets 163,000. Bilirubin 0.4, SGOT 42, SGPT 94, alkaline phosphatase 53. CAT scan of the chest shows a right upper lobe 1.3 cm mass, right lower lobe 4 mm mass, left upper lobe 4 mm mass, mediastinal lymph nodes. IMPRESSION 1. Coronary artery disease, 3-vessel disease. 2. Anemia of chronic disease. 3. High liver function tests. 4. Congestive heart failure. 5. Hyperglobulinemia. 6. Adenocarcinoma of the colon resected in 2016. 7. Bilateral pleural effusions by CAT scan. 8. Stage IV lung cancer with right upper lobe 1.3 cm mass, right lower lobe 4 mm mass, left upper lobe 4 mm mass, mediastinal lymph nodes. 9. Status post biopsy of the right upper lobe. PLAN, COMMENTS, AND SUGGESTIONS: Await biopsy for further treatment. Await surgical consultation for the coronary artery disease. Job#: [id number] LPA cc:DR. BEATRIZ MIRZA
== END 2018-07-08 16:32 | disposition short-term general hospital (02) | DRG 280 ==
LOC: ER 11:30 → ERHOLD 07-02 02:36 → ICU 07-02 22:54
PROVIDERS: ADMIT Internal Medicine; ATTEND Internal Medicine
PROC: 0W9B3ZZ Drainage of Left Pleural Cavity, Percutaneous Approach (ICD-10-PCS; 2018-07-03)
PROC: 0BBC3ZX Excision of Right Upper Lung Lobe, Percutaneous Approach, Diagnostic (ICD-10-PCS; 2018-07-04)
PROC: 0W9930Z Drainage of Right Pleural Cavity with Drainage Device, Percutaneous Approach (ICD-10-PCS; 2018-07-04)
PROC: 4A023N7 Measurement of Cardiac Sampling and Pressure, Left Heart, Percutaneous Approach (ICD-10-PCS; principal; 2018-07-05)
PROC: B2111ZZ Fluoroscopy of Multiple Coronary Arteries using Low Osmolar Contrast (ICD-10-PCS; 2018-07-05)
PROC: B2151ZZ Fluoroscopy of Left Heart using Low Osmolar Contrast (ICD-10-PCS; 2018-07-05)
DX: I11.0 Hypertensive heart disease with heart failure (principal); I21.4 Non-ST elevation (NSTEMI) myocardial infarction; J96.90 Respiratory failure, unspecified, unspecified whether with hypoxia or hypercapnia; C34.11 Malignant neoplasm of upper lobe, right bronchus or lung; J93.9 Pneumothorax, unspecified; I50.23 Acute on chronic systolic (congestive) heart failure; D64.9 Anemia, unspecified; E78.5 Hyperlipidemia, unspecified; F17.210 Nicotine dependence, cigarettes, uncomplicated; E27.9 Disorder of adrenal gland, unspecified; K80.20 Calculus of gallbladder without cholecystitis without obstruction; G62.9 Polyneuropathy, unspecified; J44.9 Chronic obstructive pulmonary disease, unspecified; I25.10 Atherosclerotic heart disease of native coronary artery without angina pectoris; I25.84 Coronary atherosclerosis due to calcified coronary lesion; I65.23 Occlusion and stenosis of bilateral carotid arteries; I73.9 Peripheral vascular disease, unspecified; N40.0 Benign prostatic hyperplasia without lower urinary tract symptoms; Z79.82 Long term (current) use of aspirin; Z88.0 Allergy status to penicillin; Y83.6 Removal of other organ (partial) (total) as the cause of abnormal reaction of the patient, or of later complication, without mention of misadventure at the time of the procedure; Y92.238 Other place in hospital as the place of occurrence of the external cause
CPT/HCPCS: 10022; 32405; 32555; 32557; 36415; 36600; 71045; 71250; 74177; 74470; 76604; 76770; 77012; 78227; 80048; 80053; 80061; 81001; 82150; 82533; 82550; 82553; 82607; 82746; 82784; 82805; 83036; 83540; 83615; 83690; 83835; 83880; 84152; 84157; 84165; 84466; 84484; 85025; 85045; 85379; 85610; 85730; 86592; 87400; 88112; 88172; 88173; 88305; 88342; 89051; 93005; 93306; 93458; 93880; 93970; 94640; 94660; 99152; 99153; 99285; A9537; C1766; C1769; J1650; J1940; J2001; J2250; J2270; J2805; J7030; J7040; Q9967

== ENCOUNTER 2020-11-17 12:01 | Inpatient (IN) | payer MEDICARE ==
[~2020-11-17] VITALS: Ht 177.8 cm; Wt 90.7 kg
[~2020-11-17 12:01] MED LIST changes: +SIMVASTATIN40 MG PO
[2020-11-17] MEDS ORDERED: ASPIRIN 81 MG CHEW TAB PO ONE ×2 (13:00→15:00)
[2020-11-17 13:35] LABS: BASOPHILS % 0.6 % (0.0-1.0); EOSINOPHILS # (AUTO) 0.1 (0.0-0.4); EOSINOPHILS % 1.8 % (0.0-6.0); HEMATOCRIT 31.8 % (38.2-49.6); HEMOGLOBIN 10.4 g/dL (14.0-18.0); LYMPHOCYTES # (AUTO) 0.9 (1.0-3.2); LYMPHOCYTES % 16.8 % (18.0-39.1); MEAN CORPUSCULAR HEMOGLOBIN 33.8 pg (28-32); MEAN CORPUSCULAR HGB CONC 32.7 g/dL (31-35); MEAN CORPUSCULAR VOLUME 103.2 fL (81-99); MONOCYTES # (AUTO) 0.6 (0.2-0.8); MONOCYTES % 11.3 % (4.4-11.3); NEUTROPHILS # (AUTO) 3.5 (2.1-6.9); NEUTROPHILS % 69.1 % (38.7-80.0); PLATELET COUNT 142 x10e3/uL (140-360); RED BLOOD COUNT 3.08 x10e6/uL (4.3-5.7); RED CELL DISTRIBUTION WIDTH 20.8 % (11.7-14.4)
[2020-11-17 13:51] LABS: ALBUMIN 4.3 g/dL (3.5-5.0); ALBUMIN/GLOBULIN RATIO 1.2 (0.8-2.0); ANION GAP 13.3 mmol/L (8-16); CALCIUM 9.5 mg/dL (8.4-10.2); CREATININE, SERUM 1.63 mg/dL (0.72-1.25); POTASSIUM 4.3 mmol/L (3.5-5.1)
[2020-11-17 13:59] LABS: CREATINE KINASE MB 4.8 ng/mL (0-5.0)
[2020-11-17] MEDS ORDERED: ONDANSETRON HCL INJ 2MG/ML 2ML 2 MG/ML VIAL IV PRN (15:00)
[2020-11-17] MEDS: FUROSEMIDE INJ 10 MG/ML 4 ML VIAL IV SCH ×2 (15:46→20:55)
[2020-11-17] MEDS ORDERED: TYLENOL # 31 EA PO (15:51)
[2020-11-17] MEDS ORDERED: LEVOTHYROXINE25 MCG PO (15:51)
[2020-11-17] MEDS ORDERED: AMIODARONE HCL200 MG PO (15:51)
[2020-11-17] MEDS ORDERED: ZESTRIL10 MG PO (15:51)
[2020-11-17] MEDS ORDERED: AMOXICILLIN500 MG PO (15:51)
[2020-11-17] MEDS ORDERED: FUROSEMIDE40 MG PO (15:52)
[2020-11-17 18:14] VITALS: BP 138/60
[2020-11-17 18:24] VITALS: BP 138/60
[2020-11-17 20:00] VITALS: BP 132/58
[2020-11-17] MEDS ORDERED: ACETAMINOPHEN/CODEINE 300MG - 30MG TAB PO PRN (20:30)
[2020-11-17] MEDS ORDERED: ZOLPIDEM TARTRATE 10 MG TAB PO PRN (20:30)
[2020-11-17] MEDS: LISINOPRIL 10 MG TAB PO SCH (20:55)
[2020-11-17] MEDS: SIMVASTATIN 40 MG TAB PO SCH (20:56)
[2020-11-17 21:00] VITALS: BP 132/58
[2020-11-17 21:43] LABS: CREATINE KINASE MB 4.7 ng/mL (0-5.0)
[2020-11-18] VITALS (8 sets, daily range): BP systolic 105–152; BP diastolic 45–59
[2020-11-18 05:28] LABS: BASOPHILS % 0.5 % (0.0-1.0); EOSINOPHILS # (AUTO) 0.2 (0.0-0.4); EOSINOPHILS % 3.1 % (0.0-6.0); HEMATOCRIT 30.4 % (38.2-49.6); HEMOGLOBIN 10.1 g/dL (14.0-18.0); LYMPHOCYTES # (AUTO) 1.2 (1.0-3.2); LYMPHOCYTES % 21.2 % (18.0-39.1); MEAN CORPUSCULAR HGB CONC 33.2 g/dL (31-35); MEAN CORPUSCULAR VOLUME 102.4 fL (81-99); MONOCYTES # (AUTO) 0.8 (0.2-0.8); NEUTROPHILS # (AUTO) 3.3 (2.1-6.9); NEUTROPHILS % 60.7 % (38.7-80.0); PLATELET COUNT 133 x10e3/uL (140-360); RED BLOOD COUNT 2.97 x10e6/uL (4.3-5.7); RED CELL DISTRIBUTION WIDTH 20.5 % (11.7-14.4)
[2020-11-18 05:54] LABS: ALBUMIN 3.9 g/dL (3.5-5.0); ALBUMIN/GLOBULIN RATIO 1.1 (0.8-2.0); ANION GAP 14.7 mmol/L (8-16); CALCIUM 9.1 mg/dL (8.4-10.2); CREATININE, SERUM 1.49 mg/dL (0.72-1.25); POTASSIUM 3.7 mmol/L (3.5-5.1)
[2020-11-18 06:21] LABS: CREATINE KINASE MB 3.7 ng/mL (0-5.0)
[2020-11-18] MEDS ORDERED: ACETAMINOPHEN 325 MG TAB PO PRN (08:45)
[2020-11-18] MEDS ORDERED: AMIODARONE HCL 200 MG TAB PO SCH (09:00)
[2020-11-18] MEDS ORDERED: FUROSEMIDE INJ 10 MG/ML 4 ML VIAL IV SCH (09:00)
[2020-11-18] MEDS: PANTOPRAZOLE SOD 40 MG TABEC PO SCH (09:04)
[2020-11-18] MEDS: ASPIRIN 81 MG ENTERIC COATED PO SCH (09:04)
[2020-11-18] MEDS: LEVOTHYROXINE SODIUM 25 MCG TABLET PO SCH (09:04)
[2020-11-18 15:01] LABS: CLARITY,URINE CLEAR (CLEAR); COLOR,URINE YELLOW (YELLOW); KETONES,URINE NEGATIVE (NEGATIVE); LEUKOCYTE ESTERASE ,URINE NEGATIVE (NEGATIVE); NITRITE,URINE NEGATIVE (NEGATIVE); PROTEIN,URINE DIPSTICK NEGATIVE (NEGATIVE); URINE UROBILINOGEN 0.2 mg/dL (0.2 - 1)
[2020-11-18] MEDS: FUROSEMIDE INJ 10 MG/ML 4 ML VIAL IV SCH (17:45)
[2020-11-18] MEDS: ZOLPIDEM TARTRATE 5 MG TAB PO PRN (20:11)
[2020-11-18] MEDS: LISINOPRIL 10 MG TAB PO SCH (20:11)
[2020-11-18] MEDS: SIMVASTATIN 40 MG TAB PO SCH (20:11)
[2020-11-19] VITALS: BP 114/43
[2020-11-19 04:00] VITALS: BP 98/48
[2020-11-19 07:22] LABS: ANION GAP 14.8 mmol/L (8-16); CREATININE, SERUM 1.64 mg/dL (0.72-1.25); POTASSIUM 3.8 mmol/L (3.5-5.1)
[2020-11-19 07:53] VITALS: BP 108/56
[2020-11-19] MEDS: PANTOPRAZOLE SOD 40 MG TABEC PO SCH (08:58)
[2020-11-19] MEDS: ASPIRIN 81 MG ENTERIC COATED PO SCH (08:58)
[2020-11-19] MEDS: LEVOTHYROXINE SODIUM 25 MCG TABLET PO SCH (08:59)
[2020-11-19] MEDS: AMIODARONE HCL 200 MG TAB PO SCH (09:01)
[2020-11-19] MEDS: FUROSEMIDE INJ 10 MG/ML 4 ML VIAL IV SCH (09:05)
[2020-11-19 11:59] VITALS: BP 124/52
[2020-11-19 12:25] LABS: FERRITIN 168.48 ng/mL (21.81-274.66)
[2020-11-19 16:18] VITALS: BP 103/50
[2020-11-19] MEDS: FUROSEMIDE 40 MG TAB PO SCH (17:13)
[2020-11-19 20:00] VITALS: BP 118/58
[2020-11-19] MEDS: SIMVASTATIN 40 MG TAB PO SCH (20:26)
[2020-11-19] MEDS: LISINOPRIL 10 MG TAB PO SCH (20:27)
[2020-11-19] MEDS: ZOLPIDEM TARTRATE 5 MG TAB PO PRN (20:45)
[2020-11-20] VITALS (10 sets, daily range): BP systolic 99–153; BP diastolic 42–109
[2020-11-20 05:49] LABS: ALBUMIN 3.7 g/dL (3.5-5.0); ANION GAP 15.7 mmol/L (8-16); CALCIUM 8.8 mg/dL (8.4-10.2); CREATININE, SERUM 1.5 mg/dL (0.72-1.25); POTASSIUM 3.7 mmol/L (3.5-5.1)
[2020-11-20] MEDS: LEVOTHYROXINE SODIUM 25 MCG TABLET PO SCH (09:00)
[2020-11-20] MEDS: FUROSEMIDE 40 MG TAB PO SCH ×2 (09:00→17:18)
[2020-11-20] MEDS: AMIODARONE HCL 200 MG TAB PO SCH (09:00)
[2020-11-20] MEDS: PANTOPRAZOLE SOD 40 MG TABEC PO SCH (10:53)
[2020-11-20] MEDS: ASPIRIN 81 MG ENTERIC COATED PO SCH (10:53)
[2020-11-20 18:39] LABS: CLARITY,URINE CLEAR (CLEAR); COLOR,URINE YELLOW (YELLOW); KETONES,URINE NEGATIVE (NEGATIVE); LEUKOCYTE ESTERASE ,URINE NEGATIVE (NEGATIVE); NITRITE,URINE NEGATIVE (NEGATIVE); PROTEIN,URINE DIPSTICK NEGATIVE (NEGATIVE); URINE UROBILINOGEN 1 mg/dL (0.2 - 1)
[2020-11-20 18:51] LABS: BACTERIA,URINE RARE /HPF; RBC,URINE 0-5 /HPF (0-5); WBC,URINE (MAN) 0-5 /HPF (0-5)
[2020-11-20 18:52] LABS: MUCUS,URINE FEW (RARE)
[2020-11-20] MEDS: LISINOPRIL 10 MG TAB PO SCH (20:43)
[2020-11-21] VITALS (7 sets, daily range): BP systolic 101–115; BP diastolic 49–61
[2020-11-21] MEDS: ZOLPIDEM TARTRATE 5 MG TAB PO PRN ×2 (01:32→20:43)
[2020-11-21] MEDS: LEVOTHYROXINE SODIUM 25 MCG TABLET PO SCH (04:27)
[2020-11-21 06:28] LABS: BASOPHILS % 0.7 % (0.0-1.0); EOSINOPHILS # (AUTO) 0.1 (0.0-0.4); EOSINOPHILS % 2.4 % (0.0-6.0); HEMATOCRIT 35.9 % (38.2-49.6); HEMOGLOBIN 11.9 g/dL (14.0-18.0); LYMPHOCYTES # (AUTO) 1.5 (1.0-3.2); LYMPHOCYTES % 28.6 % (18.0-39.1); MEAN CORPUSCULAR HEMOGLOBIN 33.9 pg (28-32); MEAN CORPUSCULAR HGB CONC 33.1 g/dL (31-35); MEAN CORPUSCULAR VOLUME 102.3 fL (81-99); MONOCYTES % 18.7 % (4.4-11.3); NEUTROPHILS # (AUTO) 2.7 (2.1-6.9); NEUTROPHILS % 49.4 % (38.7-80.0); PLATELET COUNT 155 x10e3/uL (140-360); RED BLOOD COUNT 3.51 x10e6/uL (4.3-5.7); RED CELL DISTRIBUTION WIDTH 19.9 % (11.7-14.4)
[2020-11-21 06:46] LABS: ANION GAP 14.5 mmol/L (8-16); CALCIUM 9.3 mg/dL (8.4-10.2); CREATININE, SERUM 1.7 mg/dL (0.72-1.25); POTASSIUM 3.5 mmol/L (3.5-5.1)
[2020-11-21 07:00] LABS: % IRON SATURATION 27 % (15-50); IRON 97 ug/dL (65-175); TOTAL IRON BINDING CAPACITY 354 ug/dL (261-478); TRANSFERRIN 253 mg/dL (174-364)
[2020-11-21] MEDS: PANTOPRAZOLE SOD 40 MG TABEC PO SCH (07:30)
[2020-11-21] MEDS: FUROSEMIDE 40 MG TAB PO SCH ×2 (09:00→17:23)
[2020-11-21] MEDS: ASPIRIN 81 MG ENTERIC COATED PO SCH (09:00)
[2020-11-21] MEDS ORDERED: MORPHINE SULFATE INJ 2 MG/ML SYR IV ONE (10:22)
[2020-11-21] MEDS ORDERED: MORPHINE SULFATE INJ 2 MG/ML SYR ONE (10:36)
[2020-11-21] MEDS ORDERED: POTASSIUM CHLORIDE 20 MEQ TAB CR PO ONE (13:17)
[2020-11-21] MEDS: LISINOPRIL 10 MG TAB PO SCH (20:43)
[2020-11-22] VITALS (8 sets, daily range): BP systolic 100–126; BP diastolic 46–72
[2020-11-22 05:31] LABS: BASOPHILS % 0.9 % (0.0-1.0); EOSINOPHILS # (AUTO) 0.2 (0.0-0.4); EOSINOPHILS % 4.3 % (0.0-6.0); HEMATOCRIT 33.1 % (38.2-49.6); HEMOGLOBIN 10.9 g/dL (14.0-18.0); LYMPHOCYTES # (AUTO) 1.7 (1.0-3.2); LYMPHOCYTES % 35.4 % (18.0-39.1); MEAN CORPUSCULAR HEMOGLOBIN 33.5 pg (28-32); MEAN CORPUSCULAR HGB CONC 32.9 g/dL (31-35); MEAN CORPUSCULAR VOLUME 101.8 fL (81-99); MONOCYTES # (AUTO) 0.8 (0.2-0.8); MONOCYTES % 16.5 % (4.4-11.3); NEUTROPHILS % 42.7 % (38.7-80.0); PLATELET COUNT 155 x10e3/uL (140-360); RED BLOOD COUNT 3.25 x10e6/uL (4.3-5.7); RED CELL DISTRIBUTION WIDTH 20.1 % (11.7-14.4)
[2020-11-22 05:38] LABS: INR 0.99; PROTHROMBIN TIME 13.7 seconds (11.9-14.5)
[2020-11-22 05:45] LABS: ALBUMIN 3.8 g/dL (3.5-5.0); ALBUMIN/GLOBULIN RATIO 1.1 (0.8-2.0); CALCIUM 9.1 mg/dL (8.4-10.2); CREATININE, SERUM 1.99 mg/dL (0.72-1.25)
[2020-11-22] MEDS: LEVOTHYROXINE SODIUM 25 MCG TABLET PO SCH (06:15)
[2020-11-22] MEDS: POTASSIUM CHLORIDE 20 MEQ TAB CR PO SCH (09:25)
[2020-11-22] MEDS: FUROSEMIDE 40 MG TAB PO SCH (09:25)
[2020-11-22] MEDS: ASPIRIN 81 MG ENTERIC COATED PO SCH (09:25)
[2020-11-22] MEDS: PANTOPRAZOLE SOD 40 MG TABEC PO SCH (09:25)
[2020-11-22] MEDS: LISINOPRIL 10 MG TAB PO SCH (21:00)
[2020-11-22] MEDS: ZOLPIDEM TARTRATE 5 MG TAB PO PRN (21:20)
[2020-11-23] VITALS (8 sets, daily range): BP systolic 109–135; BP diastolic 40–53
[2020-11-23] MEDS: LEVOTHYROXINE SODIUM 25 MCG TABLET PO SCH (05:26)
[2020-11-23 06:42] LABS: ALBUMIN 3.7 g/dL (3.5-5.0); CALCIUM 9.3 mg/dL (8.4-10.2); CREATININE, SERUM 1.73 mg/dL (0.72-1.25)
[2020-11-23] MEDS: PANTOPRAZOLE SOD 40 MG TABEC PO SCH (08:39)
[2020-11-23] MEDS: ASPIRIN 81 MG ENTERIC COATED PO SCH (08:39)
[2020-11-23] MEDS: POTASSIUM CHLORIDE 20 MEQ TAB CR PO SCH (08:39)
[2020-11-23] MEDS: FUROSEMIDE 40 MG TAB PO SCH (08:39)
[2020-11-23] MEDS: LISINOPRIL 10 MG TAB PO SCH (20:22)
[2020-11-23] MEDS: ZOLPIDEM TARTRATE 5 MG TAB PO PRN (21:25)
[2020-11-24] VITALS: BP 113/39
[2020-11-24 04:00] VITALS: BP 140/48
[2020-11-24] MEDS: LEVOTHYROXINE SODIUM 25 MCG TABLET PO SCH (05:27)
[2020-11-24 06:56] LABS: ALBUMIN 3.8 g/dL (3.5-5.0); ANION GAP 14.3 mmol/L (8-16); CALCIUM 9.5 mg/dL (8.4-10.2); CREATININE, SERUM 1.59 mg/dL (0.72-1.25); POTASSIUM 4.3 mmol/L (3.5-5.1)
[2020-11-24 08:08] VITALS: BP 121/56
[2020-11-24 08:15] VITALS: BP 121/56
[2020-11-24] MEDS: POTASSIUM CHLORIDE 20 MEQ TAB CR PO SCH (09:00)
[2020-11-24] MEDS: ASPIRIN 81 MG ENTERIC COATED PO SCH (09:31)
[2020-11-24] MEDS: FUROSEMIDE 40 MG TAB PO SCH (09:31)
[2020-11-24] MEDS: PANTOPRAZOLE SOD 40 MG TABEC PO SCH (09:31)
[2020-11-24 12:03] VITALS: BP 110/48
== END 2020-11-24 13:00 | disposition home or self-care (01) | DRG 291 ==
LOC: ER 12:47 → ERHOLD 14:57 → MED/SURG2 18:00
PROVIDERS: ADMIT Internal Medicine; ATTEND Internal Medicine
DX: I13.0 Hypertensive heart and chronic kidney disease with heart failure and stage 1 through stage 4 chronic kidney disease, or unspecified chronic kidney disease (principal); I50.23 Acute on chronic systolic (congestive) heart failure; K83.1 Obstruction of bile duct; N17.9 Acute kidney failure, unspecified; K80.10 Calculus of gallbladder with chronic cholecystitis without obstruction; M62.82 Rhabdomyolysis; E03.9 Hypothyroidism, unspecified; I25.10 Atherosclerotic heart disease of native coronary artery without angina pectoris; Z95.1 Presence of aortocoronary bypass graft; J44.9 Chronic obstructive pulmonary disease, unspecified; Z79.01 Long term (current) use of anticoagulants; Z95.2 Presence of prosthetic heart valve; E78.5 Hyperlipidemia, unspecified; Z99.81 Dependence on supplemental oxygen; N18.31 Chronic kidney disease, stage 3a; I35.0 Nonrheumatic aortic (valve) stenosis; K82.8 Other specified diseases of gallbladder; I73.9 Peripheral vascular disease, unspecified
CPT/HCPCS: 36415; 71045; 74181; 76705; 76770; 78227; 80048; 80053; 81001; 82390; 82550; 82553; 82607; 82728; 82746; 83540; 83735; 83880; 84075; 84466; 84484; 85025; 85045; 85610; 85730; 86039; 93005; 93306; 99284; A9537; J1940; J2270; U0002